=== PATIENT | female | born 1975 | race Caucasian/White ===

== ENCOUNTER 2016-11-11 07:59 | Emergency (ER) | payer SELFPAY ==
[~2016-11-11] VITALS: Ht 165.1 cm; Wt 88.5 kg
[~2016-11-11 07:59] MED LIST: AMOX500C2 PO; CPR500T PO; HYDR-3714 PO; PHEN200T27 PO; SULF1TAB7 PO; TRM50T PO
--- OUTSIDE RECORDS SUMMARY | 2016-11-11 08:05 | XMS REPORT ---
Author Author GUERLINE FOSTER Organization [employer] Address Unknown Phone Unavailable Care Team Providers Care Operator Name Role Phone GUERLINE FOSTER CP Unavailable Allergies, Adverse Reactions, Alerts Substance Reaction Event Type N.K.D.A. Info Not Available Non Drug Allergy Problems Problem Type Condition Code Onset Dates Condition Status Assessment Fatigue, unspecified type R53.83 Active Medications No Known Medications Procedures Procedure Coding System Code Date COMPLETE CBC W/AUTO DIFF WBC CPT-4 83214 Jul 26, 2015 Office Visit, Est Pt., Level 3 CPT-4 12158 Jul 26, 2015 ASSAY THYROID STIM HORMONE CPT-4 19914 Jul 26, 2015 VENIPUNCT, ROUTINE* CPT-4 21577 Jul 26, 2015 Vital Signs Date/Time: Jul 26, 2015 Temperature 98.2 F Weight 188.1 lbs Height 65 in BMI 31.30 Index Blood Pressure Diastolic 68 mmHg Blood Pressure Systolic 110 mmHg Cardiac Monitoring Heart Rate 72 bpm Results Name Result Date Reference Range Unit Abnormality Flag ROUTINE VENIPUNCTURE Summary Purpose eClinicalWorks Submission
--- NOTE | 2016-11-11 08:38 | ED Lower Extremity ---
General Chief Complaint: Lower Extremity Stated Complaint: LEFT FOOT PAIN Nursing Triage Note: PT CO OF L FOOT PAIN FOR APPROX 7 MONTHS. DENIES INJURY Nursing Sepsis Screen: No Definite Risk Source: patient Exam Limitations: no limitations History of Present Illness Time seen by provider: 08:15 Initial Comments Here with complaint of left foot pain for the last 6-7 months. She states it started when she was having to drive a vehicle with standard transmission but the pain is persisted despite the fact that she is no longer driving. Does not remember any specific injury. Complains of pain to the first MTP joint and then spreading across the forefoot and up to the ankle. States pain has increased to where she is now walking funny. She does take ibuprofen and that helped a little bit. Onset: other Severity: mild, moderate Pain/Injury Location: left foot Method of Injury: unknown Modifying Factors: Improves With Immobilization, Worse With Movement Allergies and Home Medications Allergies Coded Allergies: No Known Drug Allergies (Unverified Allergy, Mild, 04/29/09) Home Medications No Active Prescriptions or Reported Meds Constitutional: see HPINo chills, No fever Respiratory: no symptoms reported Cardiovascular: no symptoms reported Musculoskeletal: see HPI joint pain joint swelling muscle pain Skin: see HPI change in colorNo lesions Psychiatric/Neurological: No Symptoms Reported Past Pbzhyad-Inusne-Pgcbmm Hx Patient Social History Alcohol Use: Denies Use Recreational Drug Use: No Smoking Status: Current Everyday Smoker Type Used: Cigarettes Recent Foreign Travel: No Contact w/Someone Who Travel: No Recent Infectious Disease Expo: No Recent Hopitalizations: No Seasonal Allergies Seasonal Allergies: No Surgeries HX Surgeries: Yes (BRAIN ANEURYSM COILING) Surgeries: Vascular Surgery Respiratory Hx Respiratory Disorders: Yes (tobaccoism) Cardiovascular Hx Cardiac Disorders: No Neurological Hx Neurological Disorders: Yes (BRAIN ANEURYSM X2) Reproductive System Hx Reproductive Disorders: No Genitourinary Hx Genitourinary Disorders: Yes ("NO FILTER ON KIDNEYS") Gastrointestinal Hx Gastrointestinal Disorders: No Musculoskeletal Hx Musculoskeletal Disorders: No Endocrine Hx Endocrine Disorders: No HEENT HX ENT Disorders: No Cancer Hx Cancer: No Psychosocial Hx Psychiatric Problems: No Integumentary HX Skin/Integumentary Disorder: No Blood Transfusions Hx Blood Disorders: No Reviewed Nursing Assessment Reviewed/Agree w Nursing PMH: Yes Family Medical History Significant Family History: No Pertinent Family Hx Physical Exam Vital Signs Vital Sign - Last 12Hours 11/11/16 08:00 Temp 97.4 Pulse 87 Resp 18 B/P 138/68 Pulse Ox 97 O2 Delivery Room Air Capillary Refill : Less Than 3 Seconds General Appearance: WD/WN no apparent distress Cardiovascular: regular rate, rhythm no murmur Respiratory: lungs clear normal breath sounds Feet: left foot pain, left foot soft tissue tenderness, left foot swelling ( near the area of the first MTP), left foot other (athlete's foot noted throughout sole of left foot) Neurologic/Psychiatric: alert oriented x 3 Skin: warm/dry other (see above) Progress/Results/Core Measures Results/Orders My Orders Orders-MARTIN PINO MD Foot, Left, 3 Views (11/11/16 08:31) Vital Signs/I&O Vital Sign - Last 12Hours 11/11/16 08:00 Temp 97.4 Pulse 87 Resp 18 B/P 138/68 Pulse Ox 97 O2 Delivery Room Air Blood Pressure Mean: 91 Progress Note : Progress Note Seen and evaluated. X-ray left foot. I did discuss with the patient about outpatient treatment of tinea pedis. Monitor patient. 0905: X-ray shows mild degeneration but otherwise no acute fracture. Discharged home with return precautions. Patient verbalize understanding instructions and agreement with plan. Diagnostic Imaging Diagonstic Imaging: Xray Plain Films/CT/US/NM/MRI: other Comments NAME: LILIA MCGINNIS Mackenzie MED REC#: [id number] PT STATUS: REG ER : 1975 PHYSICIAN: MARTIN PINO MD ADMIT DATE: 11/11/16/ER Draft Date of Exam:11/11/16 FOOT, LEFT, 3 VIEWS INDICATION: Left foot pain, no known injury. DISCUSSION: Three views of left foot were obtained, no comparison. No acute fracture, dislocation, or other osseous abnormality identified. Mild degenerative changes within the first MTP joint. Alignment is anatomic. Soft tissues are unremarkable. IMPRESSION: 1. Mild degenerative changes within the first MTP joint. Dictated on workstation # [id number] Dict: 11/11/1655 Trans: 11/11/16 0903 [id number] Interpreted by: JOHN MASON MD Electronically signed by: Reviewed: Reviewed by Me Departure Impression Impression: Primary Impression: Left foot pain Disposition: 01 HOME, SELF-CARE Condition: Stable Departure-Patient Inst. Referrals: [facility] (PCP/Family) Primary Care Physician Patient Instructions: Athlete's Foot (DC), Sprain (DC) Add. Discharge Instructions: All discharge instructions reviewed with patient and/or family. Voiced understanding. Follow-up with your Dr. in a few days for recheck if not improved. You may take ibuprofen 600 mg every 8 hours as needed for pain for the next week or 2. Do not walk barefoot on any hard surface at any time for the next several weeks. Return for worse pain, increased swelling, red streaks up the leg, fevers, weakness or other concerns as needed. Scripts No Active Prescriptions or Reported Meds MARTIN PINO MD Nov 11, 2016 08:38
--- NOTE | 2016-11-11 09:04 | Diagnostic Imaging Report ---
INDICATION: Left foot pain, no known injury. DISCUSSION: Three views of left foot were obtained, no comparison. No acute fracture, dislocation, or other osseous abnormality identified. Mild degenerative changes within the first MTP joint. Alignment is anatomic. Soft tissues are unremarkable. IMPRESSION: 1. Mild degenerative changes within the first MTP joint. Dictated by: Dictated on workstation # [id number]
[2016-11-11 09:17] VITALS: BP 138/68
== END 2016-11-11 09:17 | disposition home or self-care (01) ==
LOC: EDUNIT# 07:59 → ER 08:01
DX: M25.572 Pain in left ankle and joints of left foot (principal); B35.3 Tinea pedis; F17.210 Nicotine dependence, cigarettes, uncomplicated
CPT/HCPCS: 73630; 99283

== ENCOUNTER → 2017-07-04 | Outpatient (CLI) | payer SELFPAY | LOC: RAD 12:46 | PROVIDERS: ATTEND Nurse Practitioner Family | DX: M79.605 Pain in left leg (principal); Z53.29 Procedure and treatment not carried out because of patient's decision for other reasons ==

== ENCOUNTER 2018-01-28 19:59 | Emergency (ER) | payer SELFPAY ==
[~2018-01-28] VITALS: Ht 165.1 cm; Wt 97.5 kg
--- OUTSIDE RECORDS SUMMARY | 2018-01-28 20:03 | XMS REPORT ---
Author Author GUERLINE FOSTER Organization e[employer] Address Unknown Phone Unavailable Care Team Providers Care Tile Applicator Name Role Phone GUERLINE FOSTER CP Unavailable Allergies, Adverse Reactions, Alerts Substance Reaction Event Type N.K.D.A. Info Not Available Non Drug Allergy Problems Problem Type Condition Code Onset Dates Condition Status Assessment Depression F32.9 Active Problem Depression F32.9 Active Medications Medication Code System Code Instructions Start Date End Date Status Dosage Sertraline HCl [facility] [address]-69 25 MG Orally Once a day Aug 01, 2015 1 tablet x 2 wk then 2 tab qd Procedures Procedure Coding System Code Date Office Visit, Est Pt., Level 3 CPT-4 71198 Aug 01, 2015 Vital Signs Date/Time: Aug 01, 2015 Cardiac Monitoring Heart Rate 70 bpm Weight 190 lbs Height 65 in BMI 31.61 Index Blood Pressure Diastolic 64 mmHg Blood Pressure Systolic 118 mmHg Results No Known Results Summary Purpose eClinicalWorks Submission
--- OUTSIDE RECORDS SUMMARY | 2018-01-28 20:03 | XMS REPORT ---
Author Author DIANE Rosen [facility] Address [address] [place] [address] Care Team Providers Care Agricultural Engineering Teacher Name Role Phone ольгаDIANE Montalvo Unavailable PROBLEMS Type Condition ICD9-CM Code [id number] Code Onset Dates Condition Status SNOMED Code Problem Left leg pain M79.605 Active 032422804 Problem Depression F32.9 Active 65978423 ALLERGIES No Known Allergies ENCOUNTERS Encounter Location Date Diagnosis [facility] [address] [id number] Jul, Cellulitis of left lower extremity L03.[address] [id number] Jul, [facility] [address] [id number] Jul, [facility] [address] [id number] Jul, Left leg pain M79.[address] [id number] Jun, Left leg pain M79.605 [facility] [address] [id number] Jun, Pain in central left lower extremity M79.605 [facility] [id number] [place] [phone] May, Cellulitis L03.[address] [id number] Nov, Hordeolum externum of left lower eyelid H00.015 and Rash R21 [address] [id number] Jul, Depression F32.9 [facility] [address] [facility] [id number] [place] [id number] Jul, Fatigue, unspecified type R53.[address] [facility] [address] [id number] [place] [id number] January, [facility] [address] [id number] [place], [place] [id number] January, Scabies 133.0 and Yeast infection of the vagina 112.1 IMMUNIZATIONS No Known Immunizations SOCIAL HISTORY Never Assessed REASON FOR VISIT left lower leg pain on the inside of her leg near her ankle. been like this for 2 months. went to [facility]...was dx with fatty tissue. [email or web address] PLAN OF CARE Activity Details Follow Up prn Reason: VITAL SIGNS Height 65 in 2017-05-14 Weight 201.4 lbs 2017-05-14 Temperature 97.7 degrees Fahrenheit 2017-05-14 Heart Rate 74 bpm 2017-05-14 Respiratory Rate 20 2017-05-14 BMI 33.51 kg/m2 2017-05-14 Blood pressure systolic 116 mmHg 2017-05-14 Blood pressure diastolic 78 mmHg 2017-05-14 MEDICATIONS Medication Instructions Dosage Frequency Start Date End Date Duration Status Bactrim DS 800-160 MG Orally BID 1 tablet 12h May, May, 10 day(s) Active RESULTS No Results PROCEDURES No Known procedures INSTRUCTIONS MEDICATIONS ADMINISTERED No Known Medications MEDICAL (GENERAL) HISTORY Type Description Date Surgical History aneurysm repair-left brain 2003 Surgical History aneurysm removed-right brain 2003
--- OUTSIDE RECORDS SUMMARY | 2018-01-28 20:03 | XMS REPORT ---
Author Author GUERLINE FOSTER [facility] Address [address] [place] [address] Care Team Providers Care Computer Network Engineer Name Role Phone GUERLINE FOSTER Unavailable PROBLEMS Type Condition ICD9-CM Code NNI50-WG Code Onset Dates Condition Status SNOMED Code Problem Left leg pain M79.605 Active 903758651 Problem Depression F32.9 Active 87923590 ALLERGIES No Information ENCOUNTERS Encounter Location Date Diagnosis [address] [id number] January, Acute non-recurrent maxillary sinusitis J01.00 ; Sore throat J02.9 and Left ear pain H92.02 [facility] [address] [id number] Jul, Cellulitis of left lower extremity L03.116 [address] [id number] [place] [id number] Jul, [place] [id number] [place] [id number] Jul, [facility] [id number] [place] [id number] Jul, Left leg pain M79.605 [place] [id number] [place] [id number] Jun, Left leg pain M79.605 [place] [id number] [place] [id number] Jun, Pain in central left lower extremity M79.605 [facility] [address] [phone] May, Cellulitis L03.90 [facility] [id number] [place] [id number] Nov, Hordeolum externum of left lower eyelid H00.015 and Rash R21 [facility] [address] [facility] [id number] [id number] Jul, Depression F32.[address] [id number] [id number] Jul, Fatigue, unspecified type R53.[address] [id number] [id number] January, [address] [id number] [id number] January, Scabies 133.0 and Yeast infection of the vagina 112.1 IMMUNIZATIONS No Known Immunizations SOCIAL HISTORY Never Assessed REASON FOR VISIT 07/07/17-phone call PLAN OF CARE VITAL SIGNS MEDICATIONS Unknown Medications RESULTS No Results PROCEDURES No Known procedures INSTRUCTIONS MEDICATIONS ADMINISTERED No Known Medications MEDICAL (GENERAL) HISTORY Type Description Date Surgical History aneurysm repair-left brain 2003 Surgical History aneurysm removed-right brain 2003
--- OUTSIDE RECORDS SUMMARY | 2018-01-28 20:03 | XMS REPORT ---
Author Author GUERLINE FOSTER [facility] Address [address] [place] [address] Care Team Providers Care Scrap Burner Name Role Phone GUERLINE FOSTER Unavailable PROBLEMS Type Condition ICD9-CM Code GIX45-WC Code Onset Dates Condition Status SNOMED Code Problem Left leg pain M79.605 Active 818140100 Problem Depression F32.9 Active 34129247 ALLERGIES No Information ENCOUNTERS Encounter Location Date Diagnosis [address] [id number] January, Acute non-recurrent maxillary sinusitis J01.00 ; Sore throat J02.9 and Left ear pain H92.02 [facility] [id number] [place] [id number] Jul, Cellulitis of left lower extremity L03.116 [place] [id number] [place] [id number] Jul, [place] [id number] [place] [id number] Jul, [facility] [id number] [place] [id number] Jul, Left leg pain M79.605 [place] [id number] [place] [id number] Jun, Left leg pain M79.605 [place] [id number] [place] [id number] Jun, Pain in central left lower extremity M79.605 [facility] [address]65[address] [phone] May, Cellulitis L03.90 [facility] [id number] [place] [id number] Nov, Hordeolum externum of left lower eyelid H00.015 and Rash R21 [facility] [address] [facility] [id number] [id number] Jul, Depression F32.[address] [id number][place] [id number] Jul, Fatigue, unspecified type R53.[address] [id number] [id number] January, [address] [id number][place] [id number] January, Scabies 133.0 and Yeast infection of the vagina 112.1 IMMUNIZATIONS No Known Immunizations SOCIAL HISTORY Never Assessed REASON FOR VISIT CT order PLAN OF CARE VITAL SIGNS MEDICATIONS Unknown Medications RESULTS Name Result Date Reference Range CT Scan : Extremity, Lower, Left w/o Contrast 2017-07-14 PROCEDURES No Known procedures INSTRUCTIONS MEDICATIONS ADMINISTERED No Known Medications MEDICAL (GENERAL) HISTORY Type Description Date Surgical History aneurysm repair-left brain 2003 Surgical History aneurysm removed-right brain 2003
--- OUTSIDE RECORDS SUMMARY | 2018-01-28 20:03 | XMS REPORT ---
Author Author GUERLINE FOSTER Organization eClinicalWorks Address Unknown Phone Unavailable Care Team Providers Care Bus Person Name Role Phone GUERLINE FOSTER CP Unavailable Allergies, Adverse Reactions, Alerts Substance Reaction Event Type N.K.D.A. Info Not Available Non Drug Allergy Problems Problem Type Condition Code Onset Dates Condition Status Assessment Fatigue, unspecified type R53.83 Active Medications No Known Medications Procedures Procedure Coding System Code Date COMPLETE CBC W/AUTO DIFF WBC CPT-4 55761 Jul 26, 2015 Office Visit, Est Pt., Level 3 CPT-4 13234 Jul 26, 2015 ASSAY THYROID STIM HORMONE CPT-4 02440 Jul 26, 2015 VENIPUNCT, ROUTINE* CPT-4 79853 Jul 26, 2015 Vital Signs Date/Time: Jul 26, 2015 Temperature 98.2 F Weight 188.1 lbs Height 65 in BMI 31.30 Index Blood Pressure Diastolic 68 mmHg Blood Pressure Systolic 110 mmHg Cardiac Monitoring Heart Rate 72 bpm Results Name Result Date Reference Range Unit Abnormality Flag ROUTINE VENIPUNCTURE Summary Purpose eClinicalWorks Submission
--- NOTE | 2018-01-28 20:14 | ED Integumentary General ---
General Stated Complaint: SPIDER BITE Source: patient Exam Limitations: no limitations History of Present Illness Date Seen by Provider: January 28, 2018 Time Seen by Provider: 20:09 Initial Comments to ER with a quarter sized esion to the left anterior lower ankle. This was first noticed about 2 days ago after mowing the lawn. Her tried atif this last night at home. Timing/Duration: just prior to arrival Severity: moderate Allergies and Home Medications Allergies Coded Allergies: No Known Drug Allergies (Unverified , 04/29/09) Home Medications No Active Prescriptions or Reported Meds Patient Home Medication List Home Medication List Reviewed: Yes Constitutional: see HPI EENTM: see HPI Respiratory: no symptoms reported Cardiovascular: no symptoms reported Genitourinary: no symptoms reported Musculoskeletal: no symptoms reported Skin: see HPI Psychiatric/Neurological: No Symptoms Reported Past Aiybhuy-Uoxrxx-Xbhqdx Hx Patient Social History Type Used: Cigarettes Recent Foreign Travel: No Contact w/Someone Who Travel: No Recent Hopitalizations: No Seasonal Allergies Seasonal Allergies: No Past Medical History Vascular Surgery Reproductive Disorders: No Family Medical History No Pertinent Family Hx Physical Exam Vital Signs Capillary Refill : General Appearance: WD/WN, no apparent distress HEENT: PERRL/EOMI, normal ENT inspection Neck: non-tender, full range of motion Respiratory: no respiratory distress, no accessory muscle use Neurologic/Psychiatric: alert, normal mood/affect Skin: normal color, warm/dry Skin Problem Location: other (quarter sized area of erythematous papules in a cluster to the left anterior ankle most consistent with a rhus dermatitisith a small area of honey-colored exudate from the center of this wherehusband attempted to drain this last night. No lymphangitis. No cellulitis. Borders are well demarcated.) Skin Problem Character: erythema Departure Impression Primary Impression: Skin lesion Disposition: HOME, SELF-CARE Condition: Stable Departure-Patient Inst. Decision time for Depature: 20:13 Referrals: [facility] (PCP/Family) Primary Care Physician Patient Instructions: NO INSTRUCTIONS GIVEN Add. Discharge Instructions: 1. Wash and dry this with soap and water twice daily. Apply the antibiotic and steroid cream twice daily. Tylenol and Motrin for pain control. Cool compresses to this area. Scripts No Active Prescriptions or Reported Meds AMY DIAZ APRN January 28, 2018 20:14
[2018-01-28] MEDS ORDERED: RX-MUPIROCIN (BACTROBAN) 2% OINT 22 GM TUBE TOP STA (20:15)
[2018-01-28 20:29] VITALS: BP 139/84
[2018-01-28] MEDS ORDERED: TRIAMCINOLONE 0.1% CR (KENALOG) 15 GM TUBE TOP SCH (21:00)
== END 2018-01-28 20:29 | disposition home or self-care (01) ==
LOC: EDUNIT# 19:59 → ER 20:00
DX: L98.9 Disorder of the skin and subcutaneous tissue, unspecified (principal)
CPT/HCPCS: 99283

== ENCOUNTER 2018-03-09 14:09 | Emergency (ER) | payer SELFPAY ==
[~2018-03-09] VITALS: Ht 165.1 cm; Wt 94.3 kg
[2018-03-09 15:11] LABS: BILIRUBIN,URINE NEGATIVE (NEGATIVE); CLARITY,URINE CLEAR; COLOR,URINE YELLOW; GLUCOSE, URINE (UA) NEGATIVE (NEGATIVE); KETONES,URINE NEGATIVE (NEGATIVE); LEUKOCYTE ESTERASE ,URINE NEGATIVE (NEGATIVE); NITRITE,URINE NEGATIVE (NEGATIVE); PH,URINE 6 (5-9); PROTEIN,URINE 1+ (NEGATIVE); UROBILINOGEN,URINE NORMAL (NORMAL)
[2018-03-09 15:23] LABS: AMPHETAMINE SCREEN, URINE NEGATIVE (NEGATIVE); BARBITURATE SCREEN URINE NEGATIVE (NEGATIVE); BENZODIAZEPINES SCREEN URINE NEGATIVE (NEGATIVE); CANNABINOID SCREEN, URINE NEGATIVE (NEGATIVE); COCAINE SCREEN URINE NEGATIVE (NEGATIVE); METHADONE STAT NEGATIVE (NEGATIVE); METHAMPHETAMINE SCREEN URINE S NEGATIVE (NEGATIVE); OPIATE SCREEN URINE NEGATIVE (NEGATIVE); OXYCODONE STAT NEGATIVE (NEGATIVE); PROPOXYPHENE STAT NEGATIVE (NEGATIVE); TRICYCLIC ANTIDEPRESSANTS SCRE NEGATIVE (NEGATIVE)
[2018-03-09 15:24] LABS: BACTERIA,URINE NEGATIVE /HPF; RBC,URINE 0-2 /HPF
[2018-03-09 15:56] LABS: ALANINE AMINOTRANSFERASE 20 U/L (0-55); ALBUMIN 4.2 GM/DL (3.2-4.5); ALKALINE PHOSPHATASE 78 U/L (40-136); BILIRUBIN,TOTAL 0.7 MG/DL (0.1-1.0); BUN/CREATININE RATIO 9; CALCIUM 9.2 MG/DL (8.5-10.1); CARBON DIOXIDE 22 MMOL/L (21-32); CHLORIDE 107 MMOL/L (98-107); CREATININE SERUM 0.76 MG/DL (0.60-1.30); GFR ESTIMATED > 60; GLUCOSE 80 MG/DL (70-105); POTASSIUM 3.2 MMOL/L (3.6-5.0); SODIUM 139 MMOL/L (135-145); TOTAL PROTEIN 6.7 GM/DL (6.4-8.2)
--- NOTE | 2018-03-09 15:59 | ED Back Pain ---
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 SHE SAID IT WAS WORSE TODAY SO SHE DECIDED TO FINALLY BE SEEN. HER REGULAR DOCTOR WAS NOT AVAILABLE TODAY. Nursing Sepsis Screen: No Definite Risk Source of Information: Patient Exam Limitations: No Limitations History of Present Illness Date Seen by Provider: Mar 09, 2018 Time Seen by Provider: 15:54 Initial Comments The patient is a 42-year-old white female who presents with complaints of back pain. She states this is been present for years. 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 She states that this has been getting worse for at least more difficult to put up with. 800 mg of ibuprofen has not proved to be any relief. Heat helps somewhat. She describes pain coming from her back to her right hip and also numbness down the leg. Standing Is tolerable. Sitting is the worst position. She also has pain when lying down. Today she finally decided that she must do something about this. Her provider was not available so she decided to come here. Pain/Injury Location: Back Radiation: Other Method of Injury: Unknown Allergies and Home Medications Allergies Coded Allergies: No Known Drug Allergies (Unverified , 04/29/09) Home Medications No Active Prescriptions or Reported Meds Patient Home Medication List Home Medication List Reviewed: Yes Constitutional: see HPI EENTM: no symptoms reported Respiratory: no symptoms reported Cardiovascular: no symptoms reported Gastrointestinal: no symptoms reported Genitourinary: no symptoms reported Musculoskeletal: back pain Skin: no symptoms reported Psychiatric/Neurological: No Symptoms Reported Past [id number]-[id number] Hx Patient Social History Type Used: Cigarettes 2nd Hand Smoke Exposure: Yes Recent Foreign Travel: No Contact w/Someone Who Travel: No Recent Infectious Disease Expo: No Recent Hopitalizations: No Seasonal Allergies Seasonal Allergies: No Past Medical History Surgeries: Yes (BRAIN ANEURYSM COILING) Vascular Surgery Respiratory: Yes (tobaccoism) Cardiac: No Neurological: Yes (BRAIN ANEURYSM X2) Reproductive Disorders: No Gastrointestinal: No Musculoskeletal: No Endocrine: No Cancer: No Psychosocial: No Integumentary: No Blood Disorders: No Family Medical History No Pertinent Family Hx Physical Exam Vital Signs Vital Signs - First Documented 03/09/18 14:27 Temp 97.9 Pulse 74 Resp 18 B/P (MAP) 179/116 (137) Pulse Ox 98 Capillary Refill : Less Than 3 Seconds General Appearance: Mild Distress HEENT: Normal ENT Inspection Neck: Normal Inspection Cardiovascular: Regular Rate, Rhythm, No Edema, No Gallop, No JVD, No Murmur, Normal Peripheral Pulses Respiratory: Chest Non Tender, Lungs Clear, Normal Breath Sounds, No Accessory Muscle Use, No Respiratory Distress, Accessory Muscle Use Gastrointestinal: Normal Bowel Sounds, No Organomegaly, No Pulsatile Mass, Non Tender Neurologic/Psychiatric: Alert, Oriented x3, No Motor/Sensory Deficits, Normal Mood/Affect, 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 There is pain to ante flexion. There is no Reflex movement at either knee Progress/Results/Core Measures Results/Orders Lab Results Laboratory Tests Test 03/09/18 15:00 03/09/18 15:15 03/09/18 16:40 Range/Units Urine Color YELLOW Urine Clarity CLEAR Urine pH 6 5-9 Urine Specific [place] 1.010 L 1.016-1.022 Urine Protein 1+ H NEGATIVE Urine Glucose (UA) NEGATIVE NEGATIVE Urine Ketones NEGATIVE NEGATIVE Urine Nitrite NEGATIVE NEGATIVE Urine Bilirubin NEGATIVE NEGATIVE Urine Urobilinogen NORMAL NORMAL MG/DL Urine Leukocyte Esterase NEGATIVE NEGATIVE Urine RBC (Auto) 3+ H NEGATIVE Urine RBC 0-2 /HPF Urine WBC NONE /HPF Urine Squamous Epithelial Cells 2-5 /HPF Urine Crystals NONE /LPF Urine Bacteria NEGATIVE /HPF Urine Casts NONE /LPF Urine Mucus NEGATIVE /LPF Urine Culture Indicated NO Urine Opiates Screen NEGATIVE NEGATIVE Urine Oxycodone Screen NEGATIVE NEGATIVE Urine Methadone Screen NEGATIVE NEGATIVE Urine Propoxyphene Screen NEGATIVE NEGATIVE Urine Barbiturates Screen NEGATIVE NEGATIVE Ur Tricyclic Antidepressants Screen NEGATIVE NEGATIVE Urine Phencyclidine Screen NEGATIVE NEGATIVE Urine Amphetamines Screen NEGATIVE NEGATIVE Urine Methamphetamines Screen NEGATIVE NEGATIVE Urine Benzodiazepines Screen NEGATIVE NEGATIVE Urine Cocaine Screen NEGATIVE NEGATIVE Urine Cannabinoids Screen NEGATIVE NEGATIVE Sodium Level 139 135-145 MMOL/L Potassium Level 3.2 L 3.6-5.0 MMOL/L Chloride Level 107 98-107 MMOL/L Carbon Dioxide Level 22 21-32 MMOL/L Anion Gap 10 5-14 MMOL/L Blood Urea Nitrogen 7 7-18 MG/DL Creatinine 0.76 0.60-1.30 MG/DL Estimat Glomerular Filtration Rate > 60 BUN/Creatinine Ratio 9 Glucose Level 80 70-105 MG/DL Calcium Level 9.2 8.5-10.1 MG/DL Total Bilirubin 0.7 0.1-1.0 MG/DL Aspartate Amino Transf (AST/SGOT) 23 5-34 U/L Alanine Aminotransferase (ALT/SGPT) 20 0-55 U/L Alkaline Phosphatase 78 40-136 U/L Total Protein 6.7 6.4-8.2 GM/DL Albumin 4.2 3.2-4.5 GM/DL White Blood Count 8.7 4.3-11.0 10^3/uL Red Blood Count 4.53 4.35-5.85 10^6/uL Hemoglobin 13.7 11.5-16.0 G/DL Hematocrit 39 35-52 % Mean Corpuscular Volume 87 80-99 FL Mean Corpuscular Hemoglobin 30 25-34 PG Mean Corpuscular Hemoglobin Concent 35 32-36 G/DL Red Cell Distribution Width 13.0 10.0-14.5 % Platelet Count 268 130-400 10^3/uL Mean Platelet Volume 11.3 H 7.4-10.4 FL Neutrophils (%) (Auto) 53 42-75 % Lymphocytes (%) (Auto) 35 12-44 % Monocytes (%) (Auto) 8 0-12 % Eosinophils (%) (Auto) 4 0-10 % Basophils (%) (Auto) 1 0-10 % Neutrophils # (Auto) 4.6 1.8-7.8 X 10^3 Lymphocytes # (Auto) 3.1 1.0-4.0 X 10^3 Monocytes # (Auto) 0.7 0.0-1.0 X 10^3 Eosinophils # (Auto) 0.3 0.0-0.3 10^3/uL Basophils # (Auto) 0.1 0.0-0.1 10^3/uL My Orders Orders - SUPA COTTER MD Cbc With Automated Diff (03/09/18 14:31) Comprehensive Metabolic Panel (03/09/18 14:31) Drug Screen Stat (Urine) (03/09/18 14:31) Ua Culture If Indicated (03/09/18 14:31) Ketorolac Injection (Toradol Injection) (03/09/18 16:15) Ct Lumbar Spine Wo (03/09/18 16:01) Medications Given in ED Current Medications Medications Dose Ordered Sig/Shaheen Route Start Time Stop Time Status Last Admin Dose Admin Ketorolac Tromethamine 60 mg ONCE ONCE IM 03/09/18 16:15 03/09/18 16:16 DC 03/09/18 16:09 60 MG Vital Signs/I&O 03/09/18 14:27 Temp 97.9 Pulse 74 Resp 18 B/P (MAP) 179/116 (137) Pulse Ox 98 Blood Pressure Mean: 137 Departure Communication (Admissions) CT of the lumbar spine was reported by Dr. Galarza as showing only mild degenerative changes. If more definitive views were required he recommended MRI Impression Primary Impression: low back pain/lumbar radiculopathy Disposition: HOME, SELF-CARE Condition: Stable/Unchanged Departure-Patient Inst. Decision time for Depature: 16:56 Referrals: [facility] (PCP) Primary Care Physician Patient Instructions: Lumbar Muscle Strain (DC), Upper Back Pain (DC) Add. Discharge Instructions: All discharge instructions reviewed with patient and/or family. Voiced understanding. Take prednisone as directed. Use tramadol sparingly for pain relief See your provider in 7-10 days for further evaluation Scripts Prednisone (Prednisone) 20 Mg Tab 20 MG PO PD, #10 TAB 2 tablets each a.m. 3 days 1 tablet each a.m. 4 days Prov: SUPA COTTER MD 03/09/18 Tramadol HCl (Tramadol HCl) 50 Mg Tablet 1 TAB PO 3 times a day, #20 TAB Prov: SUPA COTTER MD 03/09/18 SUPA COTTER MD Mar 09, 2018 15:59
[2018-03-09] MEDS ORDERED: KETOROLAC 60 MG/2 ML VIAL IM ONE (16:15)
--- NOTE | 2018-03-09 16:48 | Diagnostic Imaging Report ---
PROCEDURE: CT lumbar spine without contrast. TECHNIQUE: Multiple contiguous axial images were obtained through the lumbar spine without the use of intravenous contrast. Sagittal and coronal reformations were then performed. INDICATION: Low back and right leg pain. COMPARISON: There are no prior studies available for comparison. FINDINGS: The reconstructed sagittal images show the vertebral body heights and alignment to be within normal limits. The intervertebral spaces are fairly well maintained. The thecal sac appears to be relatively generous. There is perhaps mild narrowing of the thecal sac at L3-4 and L4-5 due to a combination of degenerative disc, ligamentous, and bony disease. However, there is no significant stenosis at this level nor does there appear to be any encroachment of the nerve roots. The remainder of the lumbar spine is unremarkable for spinal stenosis or nerve root encroachment. There is no fracture or acute bony abnormality appreciated. There does appear to be a small 1.2 cm hemangioma along the inferior endplate of T11 on the left. There is no sign of a paraspinal mass. IMPRESSION: 1. 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 There is no sign of any significant neural foraminal narrowing either. If further imaging is desired, then MRI would be recommended. 2. There is no acute bony abnormality noted. 3. These results were discussed with Dr. Izquierdo in the ER. Dictated by: Dictated on workstation # [id number]
[2018-03-09 16:50] LABS: BASOPHILS # (AUTO) 0.1 10^3/uL (0.0-0.1); BASOPHILS % (AUTO) 1 % (0-10); EOSINOPHILS # (AUTO) 0.3 10^3/uL (0.0-0.3); EOSINOPHILS % (AUTO) 4 % (0-10); HEMATOCRIT 39 % (35-52); HEMOGLOBIN 13.7 G/DL (11.5-16.0); LYMPHOCYTES # (AUTO) 3.1 X 10^3 (1.0-4.0); LYMPHOCYTES % (AUTO) 35 % (12-44); MEAN CORPUSCULAR HEMOGLOBIN 30 PG (25-34); MEAN CORPUSCULAR HGB CONC 35 G/DL (32-36); MEAN CORPUSCULAR VOLUME 87 FL (80-99); MEAN PLATELET VOLUME 11.3 FL (7.4-10.4); MONOCYTES # (AUTO) 0.7 X 10^3 (0.0-1.0); MONOCYTES % (AUTO) 8 % (0-12); NEUTROPHILS # (AUTO) 4.6 X 10^3 (1.8-7.8); NEUTROPHILS % (AUTO) 53 % (42-75); PLATELET COUNT 268 10^3/uL (130-400); RED BLOOD COUNT 4.53 10^6/uL (4.35-5.85); WHITE BLOOD COUNT 8.7 10^3/uL (4.3-11.0)
[2018-03-09] MEDS ORDERED: TRAM50TA2 PO (16:59)
[2018-03-09] MEDS ORDERED: PRD20T PO (17:11)
[2018-03-09 17:19] VITALS: BP 179/116
== END 2018-03-09 17:19 | disposition home or self-care (01) ==
LOC: EDUNIT# 14:09 → ER 14:12
DX: M54.16 Radiculopathy, lumbar region (principal); Z77.22 Contact with and (suspected) exposure to environmental tobacco smoke (acute) (chronic); Z86.73 Personal history of transient ischemic attack (TIA), and cerebral infarction without residual deficits
CPT/HCPCS: 36415; 72131; 80053; 80306; 81000; 85025; 96372

== ENCOUNTER 2020-09-20 14:42 | Emergency (ER) | payer SELFPAY ==
[~2020-09-20] VITALS: Ht 165.1 cm; Wt 99.8 kg
[~2020-09-20 14:42] MED LIST changes: +PRD20T PO
[2020-09-20] MEDS ORDERED: fentaNYL INJECTION 100 MCG/2 ML AMP IVP ONE (15:15)
[2020-09-20] MEDS ORDERED: NS IV 1000 ML 1,000 ML IV SCH (15:15)
[2020-09-20] MEDS ORDERED: ASPIRIN 81 MG CHEW (CHILDREN'S ASA) PO ONE (15:15)
--- NOTE | 2020-09-20 15:21 | ED Neurological Problem ---
General Chief Complaint: Chest Pain Stated Complaint: MARQUEZ,CP, HTN Nursing Triage Note: PT AMBULATE TO ROOM 05 WITH C/O CHEST PAIN X4 DAYS. PT STATES SHE WAS SEEN AT [facility] TODAY AND WAS SENT TO THIS ED. PT DENIES ANY HX OF CARDIAC ISSUES. Nursing Sepsis Screen: No Definite Risk Source: patient Exam Limitations: no limitations History of Present Illness Date Seen by Provider: Sep 20, 2020 Time Seen by Provider: 15:04 Initial Comments The patient presents to the ER by private conveyance with chief complaint left side stabbing chest pain lasting for about a second starting about 4 days ago. Not made worse by deep inspiration. She is not had any new cough. No shortness of air fever chills nausea vomiting or sick contacts. No history of heart disease. She does smoke cigarettes and has high blood pressure. She went to urgent care because she was having pain behind her eyes and some paresthesias in her right arm. She says this is a similar presentation to when she had to have her aneurysm surgery in [place]. She says she had 2 aneurysms behind each eye and does not remember what they did for it. She does not take any medicines now. She is not on blood thinners. She denies a history of lung disease. Allergies and Home Medications Allergies Coded Allergies: No Known Drug Allergies (Unverified , 04/29/09) Home Medications Prednisone 20 Mg Tab, 20 MG PO PD 2 tablets each a.m. 3 days 1 tablet each a.m. 4 days Prescribed by: SUPA COTTER on 03/09/18 1711 Tramadol HCl 50 Mg Tablet, 1 TAB PO 3 times a day Prescribed by: SUPA COTTER on 03/09/18 1659 Patient Home Medication List Home Medication List Reviewed: Yes Review of Systems Review of Systems Constitutional: No chills, No diaphoresis Eyes: Denies Blindness, Denies Blurred Vision, Denies Drainage Ears, Nose, Mouth, Throat: denies ear pain, denies ear discharge Respiratory: No cough, No short of breath Cardiovascular: No chest pain, No palpitations Gastrointestinal: No abdominal pain, No nausea, No vomiting Genitourinary: No decreased output, No discharge, No dysuria Musculoskeletal: No back pain, No joint pain Psychiatric/Neurological: See HPI, Tingling (Right arm) All Other Systems Reviewed Negative Unless Noted: Yes Past Ztndgxc-Fytskz-Huifep Hx Patient Social History Alcohol Use: Denies Use Smoking Status: Current Everyday Smoker Type Used: Cigarettes 2nd Hand Smoke Exposure: Yes Recent Infectious Disease Expo: No Recent Hopitalizations: No Seasonal Allergies Seasonal Allergies: No Past Medical History Surgeries: Yes (BRAIN ANEURYSM COILING) Vascular Surgery Respiratory: Yes (tobaccoism) Cardiac: No Neurological: Yes (BRAIN ANEURYSM X2) Reproductive Disorders: No Gastrointestinal: No Musculoskeletal: No Endocrine: No Cancer: No Psychosocial: No Integumentary: No Blood Disorders: No Family Medical History No Pertinent Family Hx Physical Exam Vital Signs Vital Signs - First Documented 09/20/20 15:03 Temp 35.8 Pulse 88 Resp 18 B/P (MAP) 147/94 (111) O2 Delivery Room Air Capillary Refill : Less Than 3 Seconds Height, Weight, BMI Height: 5'5.00" Weight: 208lbs. 0oz. [id number]; 36.00 BMI Method:Stated General Appearance: WD/WN, mild distress HEENT: PERRL/EOMI, pharynx normal, TM abnormal (R) (Injected with opaque mucus behind the TM nontender to palpation and manipulation), other (Bilateral nasal mucosa is congested, with some mild to moderate purulent discharge. Tenderness to palpation over bilateral maxillary and frontal sinuses.) Neck: full range of motion, normal inspection Respiratory: lungs clear, normal breath sounds, no respiratory distress, no accessory muscle use Cardiovascular: normal peripheral pulses, regular rate, rhythm Peripheral Pulses: 2+ Dorsalis Pedis (R), 2+ Left Dors-Pedis (L), 2+ Radial Pulses (R), 2+ Radial Pulses (L) Extremities: normal range of motion, non-tender, normal inspection, no pedal edema Neurologic/Psychiatric: alert, oriented x 3, other (Anxious affect) Crainal Nerves: normal hearing, normal speech, PERRL Motor/Sensory: no motor deficit, other (Paresthesias but sensation is intact in the right upper extremity) Skin: normal color, warm/dry Progress/Results/Core Measures Results/Orders Lab Results Laboratory Tests Test 09/20/20 15:20 09/20/20 15:35 Range/Units White Blood Count 10.5 4.3-11.0 10^3/uL Red Blood Count 5.01 3.80-5.11 10^6/uL Hemoglobin 14.8 11.5-16.0 g/dL Hematocrit 45 35-52 % Mean Corpuscular Volume 89 80-99 fL Mean Corpuscular Hemoglobin 30 25-34 pg Mean Corpuscular Hemoglobin Concent 33 32-36 g/dL Red Cell Distribution Width 12.1 10.0-14.5 % Platelet Count 319 130-400 10^3/uL Mean Platelet Volume 11.1 9.0-12.2 fL Immature Granulocyte % (Auto) 0 % Neutrophils (%) (Auto) 62 42-75 % Lymphocytes (%) (Auto) 29 12-44 % Monocytes (%) (Auto) 5 0-12 % Eosinophils (%) (Auto) 3 0-10 % Basophils (%) (Auto) 1 0-10 % Neutrophils # (Auto) 6.5 1.8-7.8 10^3/uL Lymphocytes # (Auto) 3.1 1.0-4.0 10^3/uL Monocytes # (Auto) 0.5 0.0-1.0 10^3/uL Eosinophils # (Auto) 0.3 0.0-0.3 10^3/uL Basophils # (Auto) 0.1 0.0-0.1 10^3/uL Immature Granulocyte # (Auto) 0.0 0.0-0.1 10^3/uL Prothrombin Time 12.4 12.2-14.7 SEC INR Comment 0.9 0.8-1.4 Activated Partial Thromboplast Time 24 24-35 SEC Sodium Level 137 135-145 MMOL/L Potassium Level 3.5 L 3.6-5.0 MMOL/L Chloride Level 102 98-107 MMOL/L Carbon Dioxide Level 25 21-32 MMOL/L Anion Gap 10 5-14 MMOL/L Blood Urea Nitrogen 12 7-18 MG/DL Creatinine 0.84 0.60-1.30 MG/DL Estimat Glomerular Filtration Rate > 60 BUN/Creatinine Ratio 14 Glucose Level 165 H 70-105 MG/DL Calcium Level 9.3 8.5-10.1 MG/DL Corrected Calcium 9.1 8.5-10.1 MG/DL Magnesium Level 1.9 1.6-2.4 MG/DL Total Bilirubin 0.6 0.1-1.0 MG/DL Aspartate Amino Transf (AST/SGOT) 19 5-34 U/L Alanine Aminotransferase (ALT/SGPT) 23 0-55 U/L Alkaline Phosphatase 97 40-136 U/L Myoglobin 29.1 10.0-92.0 NG/ML Troponin I < 0.028 <0.028 NG/ML Total Protein 7.6 6.4-8.2 GM/DL Albumin 4.3 3.2-4.5 GM/DL Urine Color YELLOW Urine Clarity CLEAR Urine pH 5.5 5-9 Urine Specific [place] >=1.030 1.016-1.022 Urine Protein 2+ H NEGATIVE Urine Glucose (UA) NEGATIVE NEGATIVE Urine Ketones NEGATIVE NEGATIVE Urine Nitrite NEGATIVE NEGATIVE Urine Bilirubin NEGATIVE NEGATIVE Urine Urobilinogen 0.2 < = 1.0 MG/DL Urine Leukocyte Esterase NEGATIVE NEGATIVE Urine RBC (Auto) 2+ H NEGATIVE Urine RBC 2-5 H /HPF Urine WBC NONE /HPF Urine Squamous Epithelial Cells 25-50 H /HPF Urine Crystals NONE /LPF Urine Bacteria NEGATIVE /HPF Urine Casts NONE /LPF Urine Mucus NEGATIVE /LPF Urine Culture Indicated NO My Orders Orders - CALOS,PEÑA J Continuous Ekg Monitoring (09/20/20 14:43) Ekg Tracing (09/20/20 14:43) Ua Culture If Indicated (09/20/20 14:43) Urine Bedside (09/20/20 14:43) Cbc With Automated Diff (09/20/20 15:11) Magnesium (09/20/20 15:11) Chest 1 View, Ap/Pa Only (09/20/20 15:11) Comprehensive Metabolic Panel (09/20/20 15:11) Myoglobin Serum (09/20/20 15:11) Protime With Inr (09/20/20 15:11) Partial Thromboplastin Time (09/20/20 15:11) O2 (09/20/20 15:11) Lipid Panel (09/21/20 06:00) Ed Iv/Invasive Line Start (09/20/20 15:11) Troponin I (09/20/20 15:11) Aspirin Chewable Tablet (Baby Aspirin Ch (09/20/20 15:15) Ct Angio Head/Neck (09/20/20 15:11) Ed Iv/Invasive Line Start (09/20/20 15:11) Ns Iv 1000 Ml (Sodium Chloride 0.9%) (09/20/20 15:15) Fentanyl Injection (Sublimaze Injection (09/20/20 15:15) Iohexol Injection (Omnipaque 350 Mg/Ml 1 (09/20/20 15:30) Received Contrast (Hold Metformin- Contr (09/20/20 15:30) Sodium Chloride Flush (Catheter Flush Sy (09/20/20 15:30) Ns (Ivpb) (Sodium Chloride 0.9% Ivpb Bag (09/20/20 15:30) Lorazepam Injection (Ativan Injection) (09/20/20 16:15) Medications Given in ED Current Medications Medications Dose Ordered Sig/Shaheen Route Start Time Stop Time Status Last Admin Dose Admin Aspirin 324 mg ONCE ONCE PO 09/20/20 15:15 09/20/20 15:16 DC 09/20/20 15:32 324 MG Fentanyl Citrate 25 mcg ONCE ONCE IVP 09/20/20 15:15 09/20/20 15:16 DC 09/20/20 15:33 25 MCG Iohexol 75 ml ONCE ONCE IV 09/20/20 15:30 09/20/20 15:31 DC 09/20/20 17:07 75 ML Lorazepam 1 mg ONCE ONCE IVP 09/20/20 16:15 09/20/20 16:16 DC 09/20/20 16:17 1 MG Sodium Chloride 100 ml ONCE ONCE IV 09/20/20 15:30 09/20/20 15:31 DC 09/20/20 17:07 80 ML Vital Signs/I&O 09/20/20 09/20/20 09/20/20 15:03 15:08 15:33 Temp 35.8 35.8 Pulse 88 Resp 18 B/P (MAP) 147/94 (111) O2 Delivery Room Air Room Air Blood Pressure Mean: 111 Progress Progress Note #1: Time: 15:22 Progress Note 4 days of symptoms seems less likely she has an acute intracranial hemorrhage however we will shoot a CT angiogram of her head and neck to evaluate her vasculature. More likely she has a sinus infection based on her exam of nasal congestion, purulent mucosa, tenderness to palpation. Her chest pain is also reproducible to direct palpation and lasts only a few seconds and is less likely concerning for coronary disease. Musculoskeletal most likely. Progress Note #2: Time: 17:40 Progress Note The patient is feeling better. I suspect she has some sinusitis based on clinical exam as well as a right otitis media probably causing labyrinthitis and the vertigo. Nothing on the CT angiogram would explain why she is having the paresthesia however she is not having it anymore. The brief, acute chest wall pain is likely musculoskeletal in origin and in 4 days has not produced any serum troponin. Plan to have her follow-up with her primary care provider for further evaluation and management of her symptoms. We will put her on Augmentin which should treat her ear as well as sinusitis. Meclizine for vertigo. Return precautions were discussed. Initial ECG Impression Date: Sep 20, 2020 Initial ECG Impression Time: 14:57 Initial ECG Rate: 87 Initial ECG Rhythm: Normal Sinus Initial ECG Intervals: Normal Initial ECG Impression: Normal Initial ECG Comparisson: No Previous ECG Available Comment Normal sinus rhythm without clinically relevant ST elevation or depression Diagnostic Imaging Diagonstic Imaging: Xray Plain Films/CT/US/NM/MRI: chest Comments NAME: MCGINNISLILIA Mann MED REC#: [id number] PT STATUS: REG ER : 1975 PHYSICIAN: PEÑA LIVE MD ADMIT DATE: 09/20/20/ER Draft Date of Exam:09/20/20 CHEST 1 VIEW, AP/PA ONLY PATIENT HISTORY: Chest pain. TECHNIQUE: Single frontal view of the chest. COMPARISON: 01/21/2015. FINDINGS: The lung volumes are normal. No focal consolidation is seen. No large pleural effusion or pneumothorax is seen. The cardiomediastinal silhouette is normal in size and contour. No acute osseous abnormality is seen. IMPRESSION: No acute pulmonary abnormality seen. Dictated on workstation # [id number] Dict: 09/20/20 1612 Trans: 09/20/20 1614 AS6 [id number] Interpreted by: MARIO REYES MD Electronically signed by: Reviewed: Reviewed by Me Diagonstic Imaging: CT (Angiogram) Plain Films/CT/US/NM/MRI: head (And neck) Comments [facility] [place] [place] NAME: LILIA MCGINNIS MED REC#: [id number] PT STATUS: REG ER : 1975 PHYSICIAN: PEÑA LIVE MD ADMIT DATE: 09/20/20/ER Draft Date of Exam:09/20/20 CT ANGIO HEAD/NECK PROCEDURE: CT angiography of the head and CT angiography of the neck with and without contrast. TECHNIQUE: Contiguous noncontrast images were obtained from the skull base through the vertex. After intravenous contrast administration, helical CT angiography of the neck was performed. Source data was reformatted into 3D MIP projections. Delayed post contrast acquisition was also obtained. Auto Exposure Controls were utilized during the CT exam to meet ALARA standards for radiation dose reduction. INDICATION: Severe frontal headache. History of intracranial aneurysm status post clipping. COMPARISON: None available. FINDINGS: NONCONTRAST HEAD: No intracranial hyperdense hemorrhage or space-occupying mass. No hydrocephalus or midline shift. There are aneurysm clips at the bilateral carotid terminus. Basilar cisterns are widely patent. Bilateral frontotemporal craniotomies. No acute calvarial lesion. Paranasal sinuses and mastoid air cells are clear. CTA HEAD: Bilateral distal internal carotid arteries are widely patent and there is no carotid terminus aneurysm. The M1 and M2 divisions of the bilateral middle cerebral arteries appear patent allowing for the artifact associated with the aneurysm clips. There is a 4 x 3 mm aneurysm arising from the anterior communicating artery and this has a narrow neck. Anterior cerebral arteries are patent. Basilar artery is widely patent. Posterior cerebral arteries are patent. No aneurysm at the basilar tip or posterior communicating arteries. No pathologic enhancement on delayed-phase imaging. CTA NECK: Aortic arch is normal in appearance. A two-vessel branching pattern is present and the great vessels are widely patent. The bilateral common carotid arteries are normal. There is no stenosis of the internal carotid arteries per NASCET criteria. Cervical divisions of the internal carotid arteries are widely patent. Vertebral arteries are codominant and their origins are normal. No cervical lymphadenopathy. Lung apices are clear. IMPRESSION: 1. 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 2. No intracranial large vessel occlusion. 3. No intracranial hemorrhage. 4. No arterial stenosis or occlusion within the major neck arteries. Dictated on workstation # [id number] Dict: 09/20/20 1657 Trans: 09/20/20 1708 AS6 [id number] Interpreted by: PAWAN DIAL MD Electronically signed by: Reviewed: Reviewed by Me Departure Impression Primary Impression: Sinusitis Qualified Codes: J01.10 - Acute frontal sinusitis, unspecified Additional Impressions: Labyrinthitis of right ear Acute otitis media, right Vertigo Paresthesia of right arm Chest wall pain Brain aneurysm Disposition: 01 HOME, SELF-CARE Condition: Improved Departure-Patient Inst. Decision time for Depature: 17:42 Referrals: [facility] (PCP/Family) Primary Care Physician Patient Instructions: Brain Aneurysm, Chest Pain That Is Not Caused by the Heart (DC), LOCAL PHYSICIAN LIST, Labyrinthitis, Serous Otitis Media, Sinusitis in Adults, Vertigo (a Type of Dizziness) (DC) Add. Discharge Instructions: Drink lots of fluids to help keep your secretions moist. Tylenol 1000 mg as necessary for headache. Muscle rubs for your chest wall pain and vapor rubs such as Vicks for your headache. Start taking Augmentin 1 tablet twice a day with food for the next 10 days for your sinus infection and ear infection. If you have vertigo or dizziness then meclizine 25 mg every 6 hours should be used. Plan to follow-up with your primary care doctor for reevaluation of symptoms if not seeing some improvement over the next 3 to 4 days on antibiotics. All discharge instructions reviewed with patient and/or family. Voiced understanding. Scripts Amoxicillin/Potassium Clav (Augmentin 875-125 Tablet) 1 Each Tablet 1 EACH PO BID for 10 Days, #20 TAB 0 Refills Prov: PEÑA LIVE 09/20/20 PEÑA LIVE Sep 20, 2020 15:21
--- NOTE | 2020-09-20 15:29 | NUR ---
Lyudmila dobson in [facility] - 09/20/20 at 1529 by PMCCLURE RT CALLED FOR MAHNAZ.
--- NOTE | 2020-09-20 15:29 | NUR ---
RT CALLED FOR ABG.
[2020-09-20] MEDS ORDERED: IOHEXOL 350 MG/ML 100 ML (OMNIPAQUE 350) VIAL IV ONE (15:30)
[2020-09-20] MEDS ORDERED: HOLD METFORMIN - RECEIVED CONTRAST 20 ML VIAL IV SCH (15:30)
[2020-09-20] MEDS ORDERED: CATHETER FLUSH 10 ML SYR IV PRN (15:30)
[2020-09-20] MEDS ORDERED: NS 100 ML (IVPB) BAG IV ONE (15:30)
[2020-09-20 15:34] LABS: BASOPHILS # (AUTO) 0.1 10^3/uL (0.0-0.1); BASOPHILS % (AUTO) 1 % (0-10); EOSINOPHILS # (AUTO) 0.3 10^3/uL (0.0-0.3); EOSINOPHILS % (AUTO) 3 % (0-10); HEMATOCRIT 45 % (35-52); HEMOGLOBIN 14.8 g/dL (11.5-16.0); LYMPHOCYTES # (AUTO) 3.1 10^3/uL (1.0-4.0); LYMPHOCYTES % (AUTO) 29 % (12-44); MEAN CORPUSCULAR HEMOGLOBIN 30 pg (25-34); MEAN CORPUSCULAR HGB CONC 33 g/dL (32-36); MEAN CORPUSCULAR VOLUME 89 fL (80-99); MEAN PLATELET VOLUME 11.1 fL (9.0-12.2); MONOCYTES # (AUTO) 0.5 10^3/uL (0.0-1.0); MONOCYTES % (AUTO) 5 % (0-12); NEUTROPHILS # (AUTO) 6.5 10^3/uL (1.8-7.8); NEUTROPHILS % (AUTO) 62 % (42-75); PLATELET COUNT 319 10^3/uL (130-400); WHITE BLOOD COUNT 10.5 10^3/uL (4.3-11.0)
[2020-09-20 15:40] LABS: ALBUMIN 4.3 GM/DL (3.2-4.5); CHLORIDE 102 MMOL/L (98-107); POTASSIUM 3.5 MMOL/L (3.6-5.0); SODIUM 137 MMOL/L (135-145)
[2020-09-20 15:41] LABS: CALCIUM 9.3 MG/DL (8.5-10.1)
[2020-09-20 15:42] LABS: INR 0.9 (0.8-1.4); PROTHROMBIN TIME PATIENT 12.4 SEC (12.2-14.7)
[2020-09-20 15:43] LABS: GLUCOSE 165 MG/DL (70-105); TOTAL PROTEIN 7.6 GM/DL (6.4-8.2)
[2020-09-20 15:44] LABS: CARBON DIOXIDE 25 MMOL/L (21-32)
[2020-09-20 15:45] LABS: BILIRUBIN,TOTAL 0.6 MG/DL (0.1-1.0)
[2020-09-20 15:46] LABS: ALKALINE PHOSPHATASE 97 U/L (40-136); CREATININE SERUM 0.84 MG/DL (0.60-1.30); GFR ESTIMATED > 60
[2020-09-20 15:47] LABS: BUN/CREATININE RATIO 14
[2020-09-20 15:49] LABS: ALANINE AMINOTRANSFERASE 23 U/L (0-55); MAGNESIUM 1.9 MG/DL (1.6-2.4)
[2020-09-20 15:50] LABS: BILIRUBIN,URINE NEGATIVE (NEGATIVE); CLARITY,URINE CLEAR; COLOR,URINE YELLOW; GLUCOSE, URINE (UA) NEGATIVE (NEGATIVE); KETONES,URINE NEGATIVE (NEGATIVE); LEUKOCYTE ESTERASE ,URINE NEGATIVE (NEGATIVE); NITRITE,URINE NEGATIVE (NEGATIVE); PH,URINE 5.5 (5-9); PROTEIN,URINE 2+ (NEGATIVE)
[2020-09-20 16:08] LABS: BACTERIA,URINE NEGATIVE /HPF; SQUAMOUS EPITHELIAL CELL,UR 25-50 /HPF
[2020-09-20] MEDS ORDERED: LORazepam INJ 2 MG/ML (ATIVAN) VIAL IVP ONE (16:15)
--- NOTE | 2020-09-20 16:15 | Diagnostic Imaging Report ---
PATIENT HISTORY: Chest pain. TECHNIQUE: Single frontal view of the chest. COMPARISON: 01/21/2015. FINDINGS: The lung volumes are normal. No focal consolidation is seen. No large pleural effusion or pneumothorax is seen. The cardiomediastinal silhouette is normal in size and contour. No acute osseous abnormality is seen. IMPRESSION: No acute pulmonary abnormality seen. Dictated by: Dictated on workstation # [id number]
--- NOTE | 2020-09-20 17:08 | Diagnostic Imaging Report ---
PROCEDURE: CT angiography of the head and CT angiography of the neck with and without contrast. TECHNIQUE: Contiguous noncontrast images were obtained from the skull base through the vertex. After intravenous contrast administration, helical CT angiography of the neck was performed. Source data was reformatted into 3D MIP projections. Delayed post contrast acquisition was also obtained. Auto Exposure Controls were utilized during the CT exam to meet ALARA standards for radiation dose reduction. INDICATION: Severe frontal headache. History of intracranial aneurysm status post clipping. COMPARISON: None available. FINDINGS: NONCONTRAST HEAD: No intracranial hyperdense hemorrhage or space-occupying mass. No hydrocephalus or midline shift. There are aneurysm clips at the bilateral carotid terminus. Basilar cisterns are widely patent. Bilateral frontotemporal craniotomies. No acute calvarial lesion. Paranasal sinuses and mastoid air cells are clear. CTA HEAD: Bilateral distal internal carotid arteries are widely patent and there is no carotid terminus aneurysm. The M1 and M2 divisions of the bilateral middle cerebral arteries appear patent allowing for the artifact associated with the aneurysm clips. There is a 4 x 3 mm aneurysm arising from the anterior communicating artery and this has a narrow neck. Anterior cerebral arteries are patent. Basilar artery is widely patent. Posterior cerebral arteries are patent. No aneurysm at the basilar tip or posterior communicating arteries. No pathologic enhancement on delayed-phase imaging. CTA NECK: Aortic arch is normal in appearance. A two-vessel branching pattern is present and the great vessels are widely patent. The bilateral common carotid arteries are normal. There is no stenosis of the internal carotid arteries per NASCET criteria. Cervical divisions of the internal carotid arteries are widely patent. Vertebral arteries are codominant and their origins are normal. No cervical lymphadenopathy. Lung apices are clear. IMPRESSION: 1. 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 2. No intracranial large vessel occlusion. 3. No intracranial hemorrhage. 4. No arterial stenosis or occlusion within the major neck arteries. Dictated by: Dictated on workstation # [id number]
[2020-09-20] MEDS ORDERED: AMOX-358 PO (17:45)
[2020-09-20 17:52] VITALS: BP 155/88
== END 2020-09-20 17:52 | disposition home or self-care (01) ==
LOC: EDUNIT# 14:42 → ER 14:43
DX: J32.9 Chronic sinusitis, unspecified (principal); H83.01 Labyrinthitis, right ear; H66.91 Otitis media, unspecified, right ear; R42 Dizziness and giddiness; R20.2 Paresthesia of skin; R07.89 Other chest pain; I67.1 Cerebral aneurysm, nonruptured; F41.9 Anxiety disorder, unspecified; F17.210 Nicotine dependence, cigarettes, uncomplicated; Z79.52 Long term (current) use of systemic steroids
CPT/HCPCS: 36415; 70496; 70498; 71045; 80053; 81000; 83735; 83874; 84484; 84703; 85025; 85610; 85730; 93005

== ENCOUNTER 2022-01-20 19:04 | Emergency (ER) | payer MEDICAID ==
[~2022-01-20] VITALS: Ht 165 cm; Wt 99.9 kg
[~2022-01-20 19:04] MED LIST changes: +AMOX-358 PO
--- NOTE | 2022-01-20 19:48 | ED Lower Extremity ---
General Chief Complaint: Lower Extremity Stated Complaint: L LEG SWELLING/REDNESS Nursing Triage Note: c/o left ankle swelling/redness x1 month. treated with 2 courses abx without improvement. sent here from [facility] for ultrasound/blood draw. Source: patient Exam Limitations: no limitations (AMY DIAZ APRN) History of Present Illness Date Seen by Provider: January 20, 2022 Time Seen by Provider: 19:46 Initial Comments to ER with left ankle redness swelling and pain for 1 month. She is been going to the walk-in clinic. She was initially on cephalexin for about 5 days when that caused her to have a yeast infection so she stopped it started DiflucanAnd then was transitioned to Bactrim which she has been on for 6 days now. She denies any improvement. No fevers or chills. states that she did have this once before, it swelled up, it was very red and tender. No cause was identified. Concern for DVT so she was sent here to the emergency room tonight. Onset: this afternoon Severity: moderate Pain/Injury Location: left ankle Modifying Factors: Worse With Movement (AMY DIAZ APRN) Allergies and Home Medications Allergies Coded Allergies: cephalexin (Verified Allergy, Unknown, 01/20/22) Patient Home Medication List Home Medication List Reviewed: Yes (AMY DIAZ APRN) Doxycycline Hyclate (Doxycycline Hyclate) 100 Mg Tablet, 100 MG PO BID Prescribed by: AMY DIAZ on 01/20/222028 Discontinued Medications Amoxicillin/Potassium Clav (Augmentin 875-125 Tablet) 1 Each Tablet, 1 EACH PO BID Discontinued Reason: Referral/FU Appt-Addtl Prescribed by: PEÑA LIVE on 09/20/20 1745 Last Action: Discontinued Prednisone (Prednisone) 20 Mg Tab, 20 MG PO PD Discontinued Reason: Referral/FU Appt-Addtl Prescribed by: SUPA COTTER on 03/09/18 1711 Last Action: Discontinued Tramadol HCl (Tramadol HCl) 50 Mg Tablet, 1 TAB PO 3 times a day Discontinued Reason: Referral/FU Appt-Addtl Prescribed by: SUPA COTTER on 03/09/18 1659 Last Action: Discontinued Review of Systems Constitutional: see HPI EENTM: see HPI Respiratory: no symptoms reported Cardiovascular: no symptoms reported Genitourinary: no symptoms reported Musculoskeletal: see HPI Skin: see HPI Psychiatric/Neurological: No Symptoms Reported (AMY DIAZ APRN) Past Jxkehlp-Gxvaoi-Newwth Hx Patient Social History Tobacco Use?: Yes Substance use?: No Alcohol Use?: No Pt feels they are or have been: No (AMY DIAZ APRN) Seasonal Allergies Seasonal Allergies: No (AMY DIAZ APRN) Past Medical History Surgery/Hospitalization HX: aneurysm, brain coiling Surgeries: Yes (BRAIN ANEURYSM COILING) Vascular Surgery Respiratory: Yes (tobaccoism) Cardiac: No Neurological: Yes (BRAIN ANEURYSM X2) Last Menstrual Period: January 16, 2022 Reproductive Disorders: No Gastrointestinal: No Musculoskeletal: No Endocrine: No Cancer: No Psychosocial: No Integumentary: No Blood Disorders: No (AMY DIAZ APRN) Family Medical History No Pertinent Family Hx (AMY DIAZ APRN) Physical Exam Vital Signs Vital Signs - First Documented 01/20/22 19:25 Temp 36.9 Pulse 92 Resp 18 B/P (MAP) 151/104 (120) Pulse Ox 97 O2 Delivery Room Air (JASON CARLOS MD) Vital Signs Capillary Refill : Less Than 3 Seconds (AMY DIAZ APRN) Height, Weight, BMI Height: 5'5.00" Weight: 208lbs. 0oz. [id number]; 36.00 BMI Method:Stated General Appearance: WD/WN, no apparent distress Neck: non-tender, full range of motion Respiratory: no respiratory distress, no accessory muscle use Hips: bilateral hip non-tender, bilateral hip normal inspection, bilateral hip normal range of motion Legs: left leg other (Erythema and induration to a palm sized area to the medial aspect of the left ankle) Knees: bilateral knee non-tender, bilateral knee normal inspection, bilateral knee normal range of motion Ankles: bilateral ankle non-tender, bilateral ankle normal inspection, bilateral ankle normal range of motion Feet: bilateral foot non-tender, bilateral foot normal inspection, bilateral foot normal range of motion Neurologic/Psychiatric: alert, normal mood/affect, oriented x 3 Skin: normal color, warm/dry (AMY DIAZ APRN) Progress/Results/Core Measures Results/Orders Lab Results Laboratory Tests Test 01/20/22 20:00 Range/Units White Blood Count 9.8 4.3-11.0 10^3/uL Red Blood Count 4.74 3.80-5.11 10^6/uL Hemoglobin 14.1 11.5-16.0 g/dL Hematocrit 41 35-52 % Mean Corpuscular Volume 87 80-99 fL Mean Corpuscular Hemoglobin 30 25-34 pg Mean Corpuscular Hemoglobin Concent 34 32-36 g/dL Red Cell Distribution Width 12.4 10.0-14.5 % Platelet Count 297 130-400 10^3/uL Mean Platelet Volume 10.9 9.0-12.2 fL Immature Granulocyte % (Auto) 0 % Neutrophils (%) (Auto) 58 42-75 % Lymphocytes (%) (Auto) 29 12-44 % Monocytes (%) (Auto) 8 0-12 % Eosinophils (%) (Auto) 4 0-10 % Basophils (%) (Auto) 1 0-10 % Neutrophils # (Auto) 5.8 1.8-7.8 10^3/uL Lymphocytes # (Auto) 2.9 1.0-4.0 10^3/uL Monocytes # (Auto) 0.8 0.0-1.0 10^3/uL Eosinophils # (Auto) 0.3 0.0-0.3 10^3/uL Basophils # (Auto) 0.1 0.0-0.1 10^3/uL Immature Granulocyte # (Auto) 0.0 0.0-0.1 10^3/uL D-Dimer 0.50 H 0.00-0.49 UG/ML Sodium Level 135 135-145 MMOL/L Potassium Level 3.8 3.6-5.0 MMOL/L Chloride Level 104 98-107 MMOL/L Carbon Dioxide Level 20 L 21-32 MMOL/L Anion Gap 11 5-14 MMOL/L Blood Urea Nitrogen 10 7-18 MG/DL Creatinine 0.78 0.60-1.30 MG/DL Estimat Glomerular Filtration Rate 96 BUN/Creatinine Ratio 13 Glucose Level 94 70-105 MG/DL Calcium Level 8.9 8.5-10.1 MG/DL (JASON CARLOS MD) Medications Given in ED Current Medications Medications Dose Ordered Sig/Shaheen Route Start Time Stop Time Status Last Admin Dose Admin Dexamethasone Sodium Phosphate 10 mg ONCE ONCE IM 01/20/22 20:45 01/20/22 20:41 DC 01/20/22 20:41 10 MG (JASON CARLOS MD) Vital Signs/I&O 01/20/22 01/20/22 19:25 20:41 Temp 36.9 36.8 Pulse 92 78 Resp 18 16 B/P (MAP) 151/104 (120) 149/84 Pulse Ox 97 99 O2 Delivery Room Air Room Air (JSAON CARLOS MD) Blood Pressure Mean: 120 Departure Impression Primary Impression: Abscess or cellulitis of ankle Disposition: HOME, SELF-CARE Condition: Stable Departure-Patient Inst. Decision time for Depature: 20:27 (AMY DIAZ APRN) Referrals: NO,LOCAL PHYSICIAN (PCP/Family) Primary Care Physician Patient Instructions: Cellulitis (Skin Infection), Adult (DC) Add. Discharge Instructions: 1. Stop the Bactrim changed to the new antibiotic called doxycycline. Return to ER for any concerns. Follow-up with your doctor next week. All discharge instructions reviewed with patient and/or family. Voiced understanding. Scripts Doxycycline Hyclate (Doxycycline Hyclate) 100 Mg Tablet 100 MG PO BID, #20 TAB 0 Refills Prov: AMY DIAZ APRN 01/20/22 PHYSICIAN ATTESTATION NOTE: I was present in the ER while [employer] / PA saw the patient, but I was not involved in the care, exam, or management of the patient. (JASON CARLOS MD) AMY DIAZ APRN January 20, 2022 19:48 JASON CARLOS MD January 21, 2022 04:12
[2022-01-20 20:06] LABS: BASOPHILS # (AUTO) 0.1 10^3/uL (0.0-0.1); BASOPHILS % (AUTO) 1 % (0-10); EOSINOPHILS # (AUTO) 0.3 10^3/uL (0.0-0.3); EOSINOPHILS % (AUTO) 4 % (0-10); HEMATOCRIT 41 % (35-52); HEMOGLOBIN 14.1 g/dL (11.5-16.0); LYMPHOCYTES # (AUTO) 2.9 10^3/uL (1.0-4.0); LYMPHOCYTES % (AUTO) 29 % (12-44); MEAN CORPUSCULAR HEMOGLOBIN 30 pg (25-34); MEAN CORPUSCULAR HGB CONC 34 g/dL (32-36); MEAN CORPUSCULAR VOLUME 87 fL (80-99); MEAN PLATELET VOLUME 10.9 fL (9.0-12.2); MONOCYTES # (AUTO) 0.8 10^3/uL (0.0-1.0); MONOCYTES % (AUTO) 8 % (0-12); NEUTROPHILS # (AUTO) 5.8 10^3/uL (1.8-7.8); NEUTROPHILS % (AUTO) 58 % (42-75); PLATELET COUNT 297 10^3/uL (130-400); WHITE BLOOD COUNT 9.8 10^3/uL (4.3-11.0)
[2022-01-20 20:20] LABS: CALCIUM 8.9 MG/DL (8.5-10.1); CREATININE SERUM 0.78 MG/DL (0.60-1.30); POTASSIUM 3.8 MMOL/L (3.6-5.0)
[2022-01-20] MEDS ORDERED: DOXY100T2 PO (20:29)
[2022-01-20 20:41] VITALS: BP 149/84
[2022-01-20] MEDS ORDERED: DOXYCYCLINE 100 MG (VIBRAMYCIN) TABLET PO SCH (20:45)
== END 2022-01-20 20:41 | disposition home or self-care (01) ==
LOC: EDUNIT# 19:04 → ER 19:06
DX: L53.9 Erythematous condition, unspecified (principal); F17.200 Nicotine dependence, unspecified, uncomplicated; Z88.1 Allergy status to other antibiotic agents
CPT/HCPCS: 36415; 80048; 85025; 85379

== ENCOUNTER → 2022-06-09 | Outpatient (CLI) | payer MEDICAID ==
[~2022-06-09] MED LIST changes: +DOXY100T2 PO
--- NOTE | 2022-06-09 15:27 | Diagnostic Imaging Report ---
INDICATION: LEFT LEG PAIN TECHNIQUE: Multiple real-time grayscale images were obtained over the left lower extremity in various projections, bilaterally. Additional duplex Doppler and color Doppler images were also obtained. CORRELATION STUDY: None FINDINGS: Color and grayscale sonographic images demonstrate no intraluminal defect within the visualized portion of the common femoral, superficial femoral and/or popliteal veins to suggest thrombus formation. These vessels demonstrate normal response to compression and augmentation. No soft tissue fluid collection. IMPRESSION: 1. Negative for deep venous thrombosis of the left leg. Dictated by: Dictated on workstation # [id number]
== END ==
LOC: RAD 14:11
PROVIDERS: ATTEND Pediatrics
DX: M79.605 Pain in left leg (principal)

== ENCOUNTER 2022-09-12 07:09 | Inpatient (IN) | payer MEDICAID ==
[~2022-09-12] VITALS: Ht 165 cm; Wt 103.0 kg
[2022-09-12] MEDS ORDERED: NS IV 1000 ML 1,000 ML IV STA ×2 (07:27→08:28)
[2022-09-12] MEDS ORDERED: ONDANSETRON 4 MG/2 ML (SDV) Z0FRAN IVP ONE (07:30)
[2022-09-12] MEDS ORDERED: fentaNYL INJ 100 MCG/2 ML AMP IVP ONE ×2 (07:30→09:15)
--- NOTE | 2022-09-12 07:31 | ED Abdominal Pain ---
General Chief Complaint: Abdominal/GI Problems Stated Complaint: ABD PAIN Nursing Triage Note: PT AMB TO RM 6 PT CO OF SEVERE ABD PAIN STARTED 2 DAYS AGO L LOWER ABD. DENIES PROB W BOWELS OR BLADDER AT THIS X. Source of Information: Patient Exam Limitations: No Limitations History of Present Illness Date Seen by Provider: Sep 12, 2022 Time Seen by Provider: 07:19 Initial Comments Patient is a 46-year-old female who presents to the emergency room with a chief complaint of left flank and left lower quadrant abdominal pain. Onset 2 days ago. She has not taken anything for her pain. Moving around and sitting make and laying down make her pain worse. She does states she is nauseated but has not vomited. Last bowel movement was yesterday and she reports it was normal. She states she has a history of kidney problems and her urine has been dark. No prior abdominal surgeries. She has had brain aneurysm surgery x2. She takes medication for hypertension but admits that she is inconsistent with this. No burning with urination. Still having menstrual cycles, finished her menses yesterday. Allergies to cephalexin. Smoker, nondrinker, no recreational drugs. She has not had a colonoscopy before no family history of colon issues. Timing/Duration: 1-2 Days Severity/Quality: Severe Location: LLQ, Flank (left) Activities at Onset: None Modifying Factors: Improves With Other (standing up improves her pain) Associated Symptoms: Nausea/Vomiting Allergies and Home Medications Allergies Coded Allergies: cephalexin (Verified Allergy, Unknown, 01/20/22) Patient Home Medication List Home Medication List Reviewed: Yes Lisinopril/Hydrochlorothiazide (Lisinopril-Hctz 10-12.5 mg Tab) 10 Mg-12.5 Mg Tablet, 1 EA PO DAILY PRN for BLOOD PRESSURE, (Reported) Entered as Reported by: LISSETTE KHANNA on 09/12/22 1536 Last Action: Reviewed Discontinued Medications Doxycycline Hyclate (Doxycycline Hyclate) 100 Mg Tablet, 100 MG PO BID Discontinued Reason: No Longer Taking Prescribed by: AMY DIAZ on 01/20/222028 Last Action: Discontinued Review of Systems Review of Systems Constitutional: see HPI EENTM: No Symptoms Reported Respiratory: No Symptoms Reported Cardiovascular: No Symptoms Reported Gastrointestinal: Abdominal Pain, Nausea Genitourinary: Other ("urine is dark") Musculoskeletal: no symptoms reported Skin: no symptoms reported Psychiatric/Neurological: No Symptoms Reported All Other Systems Reviewed Negative Unless Noted: Yes Past Hfgiokp-Btlxls-Ifbdzt Hx Seasonal Allergies Seasonal Allergies: No Past Medical History Surgery/Hospitalization HX: aneurysm, brain coiling Surgeries: Yes (BRAIN ANEURYSM COILING) Vascular Surgery Respiratory: Yes (tobaccoism) Cardiac: No Neurological: Yes (BRAIN ANEURYSM X2) Last Menstrual Period: Sep 10, 2022 Reproductive Disorders: No Gastrointestinal: No Musculoskeletal: No Endocrine: No Cancer: No Psychosocial: No Integumentary: No Blood Disorders: No Family Medical History No Pertinent Family Hx Physical Exam Vital Signs Vital Signs - First Documented 09/12/22 07:22 Temp 36.7 Pulse 108 Resp 18 B/P (MAP) 170/113 (132) Pulse Ox 98 Capillary Refill : Less Than 3 Seconds Height/Weight/BMI Height: 5'5.00" Weight: 208lbs. 0oz. 94.565054cw; 36.00 BMI Method:Stated General Appearance: WD/WN, mild distress HEENT: PERRL/EOMI Neck: normal inspection Respiratory: lungs clear, normal breath sounds, no respiratory distress, no accessory muscle use Cardiovascular: regular rate, rhythm Gastrointestinal: soft, abnormal bowel sounds (hypoactive), guarding, tenderness (LLQ with involuntary guarding) Extremities: normal range of motion, normal inspection, no pedal edema Neurologic/Psychiatric: alert, normal mood/affect, oriented x 3 Skin: normal color, warm/dry; No rash Progress/Results/Core Measures Results/Orders Lab Results Laboratory Tests Test 09/12/22 07:20 09/12/22 07:28 Range/Units White Blood Count 16.3 H 4.3-11.0 10^3/uL Red Blood Count 4.94 3.80-5.11 10^6/uL Hemoglobin 14.7 11.5-16.0 g/dL Hematocrit 43 35-52 % Mean Corpuscular Volume 87 80-99 fL Mean Corpuscular Hemoglobin 30 25-34 pg Mean Corpuscular Hemoglobin Concent 34 32-36 g/dL Red Cell Distribution Width 12.9 10.0-14.5 % Platelet Count 327 130-400 10^3/uL Mean Platelet Volume 10.8 9.0-12.2 fL Immature Granulocyte % (Auto) 0 % Neutrophils (%) (Auto) 72 42-75 % Lymphocytes (%) (Auto) 18 12-44 % Monocytes (%) (Auto) 7 0-12 % Eosinophils (%) (Auto) 2 0-10 % Basophils (%) (Auto) 1 0-10 % Neutrophils # (Auto) 11.8 H 1.8-7.8 10^3/uL Lymphocytes # (Auto) 2.9 1.0-4.0 10^3/uL Monocytes # (Auto) 1.2 H 0.0-1.0 10^3/uL Eosinophils # (Auto) 0.3 0.0-0.3 10^3/uL Basophils # (Auto) 0.1 0.0-0.1 10^3/uL Immature Granulocyte # (Auto) 0.1 0.0-0.1 10^3/uL Neutrophils % (Manual) 73 % Lymphocytes % (Manual) 22 % Monocytes % (Manual) 4 % Eosinophils % (Manual) 1 % Blood Morphology Comment NORMAL Sodium Level 134 L 135-145 MMOL/L Potassium Level 4.0 3.6-5.0 MMOL/L Chloride Level 101 98-107 MMOL/L Carbon Dioxide Level 23 21-32 MMOL/L Anion Gap 10 5-14 MMOL/L Blood Urea Nitrogen 12 7-18 MG/DL Creatinine 0.80 0.60-1.30 MG/DL Estimat Glomerular Filtration Rate 93 BUN/Creatinine Ratio 15 Glucose Level 134 H 70-105 MG/DL Calcium Level 9.4 8.5-10.1 MG/DL Corrected Calcium 9.3 8.5-10.1 MG/DL Total Bilirubin 0.8 0.1-1.0 MG/DL Aspartate Amino Transf (AST/SGOT) 15 5-34 U/L Alanine Aminotransferase (ALT/SGPT) 20 0-55 U/L Alkaline Phosphatase 124 40-136 U/L Total Protein 7.6 6.4-8.2 GM/DL Albumin 4.1 3.2-4.5 GM/DL Urine Color YELLOW Urine Clarity CLEAR Urine pH 5.5 5-9 Urine Specific [place] >=1.030 1.016-1.022 Urine Protein 1+ H NEGATIVE Urine Glucose (UA) NEGATIVE NEGATIVE Urine Ketones NEGATIVE NEGATIVE Urine Nitrite NEGATIVE NEGATIVE Urine Bilirubin NEGATIVE NEGATIVE Urine Urobilinogen 0.2 < = 1.0 MG/DL Urine Leukocyte Esterase NEGATIVE NEGATIVE Urine RBC (Auto) 2+ H NEGATIVE Urine RBC 5-10 H /HPF Urine WBC NONE /HPF Urine Squamous Epithelial Cells 5-10 /HPF Urine Crystals NONE /LPF Urine Bacteria TRACE /HPF Urine Casts NONE /LPF Urine Mucus NEGATIVE /LPF Urine Other CLUE CELLS PRESENT /HPF Urine Culture Indicated NO Urine Test NEGATIVE NEGATIVE My Orders Orders - ALEKSANDRA BLANTON MD Ed Iv/Invasive Line Start (09/12/22 07:25) Cbc With Automated Diff (09/12/22 07:25) Comprehensive Metabolic Panel (09/12/22 07:25) Ua Culture If Indicated (09/12/22 07:25) Ct Abdomen/Pelvis Wo (09/12/22 07:25) Ns Iv 1000 Ml (Sodium Chloride 0.9%) (09/12/22 07:27) Fentanyl Inj (Sublimaze Injection) (09/12/22 07:30) Ondansetron Injection (Zofran Injectio (09/12/22 07:30) Manual Differential (09/12/22 07:20) Ciprofloxacin Iv 400mg/200ml (Cipro Iv S (09/12/22 08:30) Metronidazole 500mg/100ml Ivpb (Flagyl 5 (09/12/22 08:30) Ns Iv 1000 Ml (Sodium Chloride 0.9%) (09/12/22 08:28) Fentanyl Inj (Sublimaze Injection) (09/12/22 09:15) Ed Admission (Communication) (09/12/22 09:21) Medications Given in ED Vital Signs/I&O 09/12/22 07:22 Temp 36.7 Pulse 108 Resp 18 B/P (MAP) 170/113 (132) Pulse Ox 98 Blood Pressure Mean: 132 Progress Progress Note : Time: 09:01 Progress Note Patient re-examined after CT (found to have acute non-perforated diverticulitis) still exquisitely tender. No evidence of perforation on CT. Afebrile, a little tachy. Chem is normal. 16K WBC. U/A shows microscopic hematuria and clue cells. Given more fentanyl. Started on Cipro and flagyl. Anticipate the IV flagyl will also treat her suspected BV with clue cells in her Urine. Discussed with Dr Fuller - general surgeon nutritionalist. Will admit obs to [facility]/medicine with him as a consult. Diagnostic Imaging Diagonstic Imaging: CT Comments [facility] [place], [place] NAME: LILIA MCGINNIS [facility] REC#: [id number] PT STATUS: REG ER : 1975 PHYSICIAN: ALEKSANDRA BLANTON MD ADMIT DATE: 09/12/22/ER Draft Date of Exam:09/12/22 CT ABDOMEN/PELVIS WO PROCEDURE: CT abdomen and pelvis without contrast. TECHNIQUE: Multiple contiguous axial images were obtained through the abdomen and pelvis without the use of intravenous contrast. Auto Exposure Controls were utilized during the CT exam to meet ALARA standards for radiation dose reduction. INDICATION: Left lower quadrant abdominal pain. Nausea. COMPARISON: None FINDINGS: Included portions of lung bases are clear. CT ABDOMEN: There is colonic diverticulosis. Note is also made of focal moderate pericolonic stranding which appears to be epicentered around a diverticulum of the distal descending colon (image 119, series 2). There is small amount of free fluid within the adjacent pericolic gutter. There is no loculated fluid collection, pneumatosis, pneumoperitoneum, nor portal venous gas. Proximal large and small bowel loops are nondistended. Normal appendix is identified. The kidneys, adrenal glands, spleen, pancreas, and liver have an unremarkable noncontrast CT appearance. No abnormal mesenteric or retroperitoneal adenopathy is seen. Mild scattered calcified aortic atherosclerosis is noted. Osseous structures show no acute abnormalities. CT PELVIS: Urinary bladder is unopacified. No calculi are seen within urinary bladder. Again, there is small amount of free fluid within the pelvis. There is no loculated fluid collection or free air. No abnormal lymph nodes are seen. Osseous structures show no acute abnormalities. IMPRESSION: 1. Colonic diverticulosis with CT findings most suggestive of acute diverticulitis of the distal descending colon. Please note, colonic malignancy may present in a similar manner. Correlation with colonoscopy is advised when clinically appropriate. 2. Small amount of free fluid likely related to the above. No loculated fluid collection, pneumatosis, pneumoperitoneum, nor portal venous gas. Dictated on workstation # [id number] Dict: 09/12/22 0827 Trans: 09/12/22 0837 [id number] Interpreted by: GRANT ESPARZA MD Electronically signed by: Departure Communication (Admissions) Time/Spoke to Consulting Phy: 09:[address] Fuller Impression Primary Impression: Acute diverticulitis Disposition: ADMITTED INPATIENT Condition: Stable Admissions Decision to Admit Reason: Admit from ER (General) Decision to Admit/Date: Sep 12, 2022 Time/Decision to Admit Time: 09:01 Departure-Patient Inst. Referrals: NO,LOCAL PHYSICIAN (PCP/Family) Primary Care Physician ALEKSANDRA BLANTON MD Sep 12, 2022 07:31
[2022-09-12 07:38] LABS: BILIRUBIN,URINE NEGATIVE (NEGATIVE); CLARITY,URINE CLEAR; COLOR,URINE YELLOW; GLUCOSE, URINE (UA) NEGATIVE (NEGATIVE); KETONES,URINE NEGATIVE (NEGATIVE); LEUKOCYTE ESTERASE ,URINE NEGATIVE (NEGATIVE); NITRITE,URINE NEGATIVE (NEGATIVE); PH,URINE 5.5 (5-9); PROTEIN,URINE 1+ (NEGATIVE)
[2022-09-12 07:40] LABS: BASOPHILS # (AUTO) 0.1 10^3/uL (0.0-0.1); BASOPHILS % (AUTO) 1 % (0-10); EOSINOPHILS # (AUTO) 0.3 10^3/uL (0.0-0.3); EOSINOPHILS % (AUTO) 2 % (0-10); HEMATOCRIT 43 % (35-52); HEMOGLOBIN 14.7 g/dL (11.5-16.0); LYMPHOCYTES # (AUTO) 2.9 10^3/uL (1.0-4.0); LYMPHOCYTES % (AUTO) 18 % (12-44); MEAN CORPUSCULAR HEMOGLOBIN 30 pg (25-34); MEAN CORPUSCULAR HGB CONC 34 g/dL (32-36); MEAN CORPUSCULAR VOLUME 87 fL (80-99); MEAN PLATELET VOLUME 10.8 fL (9.0-12.2); MONOCYTES # (AUTO) 1.2 10^3/uL (0.0-1.0); MONOCYTES % (AUTO) 7 % (0-12); NEUTROPHILS # (AUTO) 11.8 10^3/uL (1.8-7.8); NEUTROPHILS % (AUTO) 72 % (42-75); PLATELET COUNT 327 10^3/uL (130-400); WHITE BLOOD COUNT 16.3 10^3/uL (4.3-11.0)
[2022-09-12 07:48] LABS: BACTERIA,URINE TRACE /HPF
[2022-09-12 07:49] LABS: URINE OTHER CLUE CELLS PRESENT /HPF
[2022-09-12 07:56] LABS: EOSINOPHILS % (MANUAL) 1 %; LYMPHOCYTES % (MANUAL) 22 %; MONOCYTES % (MANUAL) 4 %; NEUTROPHILS % (MANUAL) 73 %; RBC MORPH NORMAL
[2022-09-12 08:02] LABS: ALBUMIN 4.1 GM/DL (3.2-4.5); BILIRUBIN,TOTAL 0.8 MG/DL (0.1-1.0); CALCIUM 9.4 MG/DL (8.5-10.1); CREATININE SERUM 0.8 MG/DL (0.60-1.30); TOTAL PROTEIN 7.6 GM/DL (6.4-8.2)
[2022-09-12] MEDS ORDERED: metroNIDAZOLE 500MG/100ML IVPB 100 ML IV ONE (08:30)
[2022-09-12] MEDS ORDERED: CIPROFLOXACIN IV 400MG/200ML 200 ML IV ONE (08:30)
--- NOTE | 2022-09-12 08:38 | Diagnostic Imaging Report ---
PROCEDURE: CT abdomen and pelvis without contrast. TECHNIQUE: Multiple contiguous axial images were obtained through the abdomen and pelvis without the use of intravenous contrast. Auto Exposure Controls were utilized during the CT exam to meet ALARA standards for radiation dose reduction. INDICATION: Left lower quadrant abdominal pain. Nausea. COMPARISON: None FINDINGS: Included portions of lung bases are clear. CT ABDOMEN: There is colonic diverticulosis. Note is also made of focal moderate pericolonic stranding which appears to be epicentered around a diverticulum of the distal descending colon (image 119, series 2). There is small amount of free fluid within the adjacent pericolic gutter. There is no loculated fluid collection, pneumatosis, pneumoperitoneum, nor portal venous gas. Proximal large and small bowel loops are nondistended. Normal appendix is identified. The kidneys, adrenal glands, spleen, pancreas, and liver have an unremarkable noncontrast CT appearance. No abnormal mesenteric or retroperitoneal adenopathy is seen. Mild scattered calcified aortic atherosclerosis is noted. Osseous structures show no acute abnormalities. CT PELVIS: Urinary bladder is unopacified. No calculi are seen within urinary bladder. Again, there is small amount of free fluid within the pelvis. There is no loculated fluid collection or free air. No abnormal lymph nodes are seen. Osseous structures show no acute abnormalities. IMPRESSION: 1. Colonic diverticulosis with CT findings most suggestive of acute diverticulitis of the distal descending colon. Please note, colonic malignancy may present in a similar manner. Correlation with colonoscopy is advised when clinically appropriate. 2. Small amount of free fluid likely related to the above. No loculated fluid collection, pneumatosis, pneumoperitoneum, nor portal venous gas. Dictated by: Dictated on workstation # [id number]
--- NOTE | 2022-09-12 10:22 | Consultation - Surgery ---
STELLA RAMOS 09/12/22 1022: History of Present Illness History of Present Illness Patient Consulted On(hamzah/time) 09/12/22 10:15 Date Seen by Provider: Sep 12, 2022 Time Seen by Provider: 10:10 History of Present Illness Surgical consult requested for Mrs. Mcginnis, 46 YO female, who was found in the ED to have acute non-perforated diverticulitis. Pt states she developed sharp LLQ abdominal pain x 3 days ago, that initially she thought was gas pain however it continued to progressively worsen. States she has never had pain like this before. Nothing makes pain better. Deep breathing, laying on left side and touching abdomen makes pain worse. Reports pain radiates from LLQ to left flank and umbilical area. She has associated chills and nausea, which have both improved since antiemetics in ED. She has a mild headache now, but typical from her baseline. Denies blood in stool, dysuria, vomiting, diarrhea, chest pain and shortness of breath. She has hx of HTN and x 3 brain aneurysms (1 currently). No abdominal surgeries. She has had x 2 surgeries for brain aneurysms. She is a smoker, denies ETOH and drugs. Father had lung cancer, but no other cancers in family. Allergies and Home Medications Allergies Coded Allergies: cephalexin (Verified Allergy, Unknown, 01/20/22) Patient Home Medication List Home Medication List Reviewed: Yes Doxycycline Hyclate (Doxycycline Hyclate) 100 Mg Tablet, 100 MG PO BID Prescribed by: AMY DIAZ on 01/20/222028 Past Pcjvbfm-Tsxzya-Hsmmmx Hx Patient Social History Smoking Status: Current Everyday Smoker Type Used: Cigarettes 2nd Hand Smoke Exposure: Yes Recent Hopitalizations: No Alcohol Use?: No Have you traveled recently?: No Seasonal Allergies Seasonal Allergies: No Surgeries History of Surgeries: Yes (BRAIN ANEURYSM COILING) Surgeries: Vascular Surgery (x 2 on brain aneurysms) Respiratory History of Respiratory Disorde: Yes (tobaccoism) Cardiovascular History of Cardiac Disorders: No Neurological History of Neurological Disord: Yes (BRAIN ANEURYSM X2) Reproductive System Hx Reproductive Disorders: No Gastrointestinal History of Gastrointestinal Di: No Musculoskeletal History of Musculoskeletal Dis: No Endocrine History of Endocrine Disorders: No Cancer History of Cancer: No Psychosocial History of Psychiatric Problem: No Integumentary History of Skin or Integumenta: No Blood Transfusions History of Blood Disorders: No Family Medical History Significant Family History: No Pertinent Family Hx, Cancer (Father - lung) Review of Systems-General Constitutional: chills (improved since ED admission); No diaphoresis, No dizziness, No malaise EENTM: No hearing loss, No vision loss, No throat pain Respiratory: No cough, No dyspnea on exertion Cardiovascular: No chest pain, No edema Gastrointestinal: LLQ, abdominal pain (LLQ); No diarrhea, No hematemesis, No loss of appetite, No melena; nausea; No vomiting Genitourinary: No decreased output, No dysuria Musculoskeletal: No joint pain, No muscle pain Skin: No pruritus, No rash Psychiatric/Neurological: Headache (baseline); Denies Tremors, Denies Weakness Physical Exam-General Problems Physical Exam Vital Signs Vital Signs - First Documented 09/12/22 09/12/22 07:22 10:11 Temp 36.7 Pulse 108 Resp 18 B/P (MAP) 170/113 (132) Pulse Ox 98 O2 Delivery Room Air Capillary Refill : Less Than 3 Seconds General Appearance: WD/WN, no apparent distress, obese Eyes: Bilateral Eye PERRL, Bilateral Eye EOMI HEENT: PERRL/EOMI; No scleral icterus (R), No scleral icterus (L), No pale conjunctivae (R), No pale conjunctivae (L) Neck: full range of motion, supple Respiratory: lungs clear, normal breath sounds, no respiratory distress, no accessory muscle use Cardiovascular: normal peripheral pulses, regular rate, rhythm, no edema, no gallop, no JVD, no murmur Peripheral Pulses: 2+ Dorsalis Pedis (R), 2+ Left Dors-Pedis (L), 2+ Radial Pulses (R), 2+ Radial Pulses (L) Gastrointestinal: normal bowel sounds, distended (mild); No rebound; tenderness (LLQ) Back: CVA tenderness (L) Extremities: non-tender, no pedal edema, no calf tenderness, normal capillary refill Neurologic/Psychiatric: no motor/sensory deficits, alert, normal mood/affect, oriented x 3 Skin: normal color, warm/dry Lymphatic: no adenopathy Data Review Labs Laboratory Tests 09/12/22 07:20: White Blood Count 16.3H, Red Blood Count 4.94, Hemoglobin 14.7, Hematocrit 43, Mean Corpuscular Volume 87, Mean Corpuscular Hemoglobin 30, Mean Corpuscular Hemoglobin Concent 34, Red Cell Distribution Width 12.9, Platelet Count 327, Mean Platelet Volume 10.8, Immature Granulocyte % (Auto) 0, Neutrophils (%) (Auto) 72, Lymphocytes (%) (Auto) 18, Monocytes (%) (Auto) 7, Eosinophils (%) (Auto) 2, Basophils (%) (Auto) 1, Neutrophils # (Auto) 11.8H, Lymphocytes # (Auto) 2.9, Monocytes # (Auto) 1.2H, Eosinophils # (Auto) 0.3, Basophils # (Auto) 0.1, Immature Granulocyte # (Auto) 0.1, Neutrophils % (Manual) 73, Lymphocytes % (Manual) 22, Monocytes % (Manual) 4, Eosinophils % (Manual) 1, Blood Morphology Comment NORMAL, Sodium Level 134L, Potassium Level 4.0, Chloride Level 101, Carbon Dioxide Level 23, Anion Gap 10, Blood Urea Nitrogen 12, Creatinine 0.80, Estimat Glomerular Filtration Rate 93, BUN/Creatinine Ratio 15, Glucose Level 134H, Calcium Level 9.4, Corrected Calcium 9.3, Total Bilirubin 0.8, Aspartate Amino Transf (AST/SGOT) 15, Alanine Aminotransferase (ALT/SGPT) 20, Alkaline Phosphatase 124, Total Protein 7.6, Albumin 4.1 09/12/22 07:28: Urine Color YELLOW, Urine Clarity CLEAR, Urine pH 5.5, Urine Specific [place] >=1.030, Urine Protein 1+H, Urine Glucose (UA) NEGATIVE, Urine Ketones NEGATIVE, Urine Nitrite NEGATIVE, Urine Bilirubin NEGATIVE, Urine Urobilinogen 0.2, Urine Leukocyte Esterase NEGATIVE, Urine RBC (Auto) 2+H, Urine RBC 5-10H, Urine WBC NONE, Urine Squamous Epithelial Cells 5-10, Urine Crystals NONE, Urine Bacteria TRACE, Urine Casts NONE, Urine Mucus NEGATIVE, Urine Other CLUE CELLS PRESENT, Urine Culture Indicated NO Radiology [facility], [facility]. [place], [place] NAME: LILIA MCGINNIS Mackenzie [facility] REC#: [id number] PT STATUS: REG ER : 1975 PHYSICIAN: ALEKSANDRA BLANTON MD ADMIT DATE: 09/12/22/ER Draft Date of Exam:09/12/22 CT ABDOMEN/PELVIS WO PROCEDURE: CT abdomen and pelvis without contrast. TECHNIQUE: Multiple contiguous axial images were obtained through the abdomen and pelvis without the use of intravenous contrast. Auto Exposure Controls were utilized during the CT exam to meet ALARA standards for radiation dose reduction. INDICATION: Left lower quadrant abdominal pain. Nausea. COMPARISON: None FINDINGS: Included portions of lung bases are clear. CT ABDOMEN: There is colonic diverticulosis. Note is also made of focal moderate pericolonic stranding which appears to be epicentered around a diverticulum of the distal descending colon (image 119, series 2). There is small amount of free fluid within the adjacent pericolic gutter. There is no loculated fluid collection, pneumatosis, pneumoperitoneum, nor portal venous gas. Proximal large and small bowel loops are nondistended. Normal appendix is identified. The kidneys, adrenal glands, spleen, pancreas, and liver have an unremarkable noncontrast CT appearance. No abnormal mesenteric or retroperitoneal adenopathy is seen. Mild scattered calcified aortic atherosclerosis is noted. Osseous structures show no acute abnormalities. CT PELVIS: Urinary bladder is unopacified. No calculi are seen within urinary bladder. Again, there is small amount of free fluid within the pelvis. There is no loculated fluid collection or free air. No abnormal lymph nodes are seen. Osseous structures show no acute abnormalities. IMPRESSION: 1. Colonic diverticulosis with CT findings most suggestive of acute diverticulitis of the distal descending colon. Please note, colonic malignancy may present in a similar manner. Correlation with colonoscopy is advised when clinically appropriate. 2. Small amount of free fluid likely related to the above. No loculated fluid collection, pneumatosis, pneumoperitoneum, nor portal venous gas. Dictated on workstation # [id number] Dict: 09/12/22 0827 Trans: 09/12/22 0837 [id number] Interpreted by: GRANT ESPARZA MD Electronically signed by: Assessment/Plan Assessment/Plan Assessment/Plan Acute Diverticulitis - nonperforated LLQ pain Nausea HTN Hx of brain aneurysms Smoker IVF Abx - Ciprofloxacin and metronidazole Antiemetics Will observe and intervene surgically if indicated RENEA ENGLE DO 09/12/22 1517: History of Present Illness History of Present Illness History of Present Illness Consult requested by Dr. Rao for Diverticulitis. Patient is a 46 year old female with 3 days left lower quadrant and left flank pain. Patient states moving and touching the abdomen makes worse. Radiates to umbilical area at times. Moderates to severe in nature. Has not had colonoscopy. Having chills and nausea. No emesis or diarrhea. Has chronic headaches which she has headache at this time. Hx or aneurysms. Denies fever sweats or chest pain at this time. Ct scan showing area of distal descending colon with inflammation consistent with diverticulitis. Allergies and Home Medications Allergies Coded Allergies: cephalexin (Verified Allergy, Unknown, 01/20/22) Patient Home Medication List Home Medication List Reviewed: Yes Doxycycline Hyclate (Doxycycline Hyclate) 100 Mg Tablet, 100 MG PO BID Prescribed by: AMY DIAZ on 01/20/222028 Past Fmskmzk-Vmeetv-Ckcyjb Hx Reviewed Nursing Assessment Reviewed/Agree w Nursing PMH: Yes Family Medical History Significant Family History: Cancer (Father - lung) Review of Systems-General Constitutional: chills (improved since ED admission); No diaphoresis EENTM: No hearing loss, No vision loss, No throat pain Respiratory: No cough, No dyspnea on exertion Cardiovascular: No chest pain, No edema Gastrointestinal: LLQ, abdominal pain (LLQ), nausea; No vomiting Genitourinary: No decreased output, No dysuria Musculoskeletal: No joint pain, No muscle pain Skin: No pruritus, No rash Psychiatric/Neurological: Headache (baseline); Denies Tremors, Denies Weakness All Other Systems Reviewed Negative Unless Noted: Yes (Negative excepted noted.) Physical Exam-General Problems Physical Exam General Appearance: WD/WN, no apparent distress, obese HEENT: PERRL/EOMI, normal ENT inspection Neck: non-tender, supple Respiratory: chest non-tender, no respiratory distress, no accessory muscle use Cardiovascular: regular rate, rhythm, no JVD Gastrointestinal: soft; No guarding, No rebound; tenderness (LLQ) Rectal: deferred Back: no CVA tenderness, no vertebral tenderness, CVA tenderness (L) Extremities: non-tender Neurologic/Psychiatric: no motor/sensory deficits, alert, normal mood/affect, oriented x 3 Skin: normal color, warm/dry Lymphatic: no adenopathy Assessment/Plan Assessment/Plan Assessment/Plan Acute Diverticulitis - nonperforated LLQ pain Nausea HTN Hx of brain aneurysms Smoker IVF Abx - Ciprofloxacin and metronidazole Antiemetics Will need colonoscopy about 6-8 weeks after symptoms resolve NPO Conservative measures at this time. When pain/symptoms decrease will start clears. Supervisory-Addendum Brief Verification & Attestation Participated in pt care: history, MDM, physical Personally performed: exam, history, MDM, supervision of care Care discussed with: Medical Student Procedures: n/a Results interpretation: Verified all documentation Verification and Attestation of Medical Student E/M Service A medical student performed and documented this service in my presence. I reviewed and verified all information documented by the medical student and made modifications to such information, when appropriate. I personally performed the physical exam and medical decision making. Renea Engle, Sep 12, 2022,15:20 STELLA RAMOS Sep 12, 2022 10:22 RENEA ENGLE DO Sep 12, 2022 15:17
[2022-09-12 10:34] VITALS: BP 139/83
[2022-09-12] MEDS: ENOXAPARIN 40 MG/0.4 ML (LOVENOX) SYR SC SCH (10:36)
[2022-09-12] MEDS: NS IV 1000 ML 1,000 ML IV SCH ×2 (10:36→18:40)
[2022-09-12] MEDS: CIPROFLOXACIN IV 400MG/200ML 200 ML IV SCH ×2 (11:03→21:53)
[2022-09-12] MEDS ORDERED: morphine INJ 4 MG/ML 1 ML (VIAL/SYRINGE) IVP PRN (12:30)
[2022-09-12 12:32] VITALS: BP 142/89
[2022-09-12] MEDS ORDERED: morphine INJ 4 MG/ML 1 ML (VIAL/SYRINGE) IV PRN (13:00)
--- NOTE | 2022-09-12 13:09 | History & Physical ---
BETO HOLM 09/12/22 1309: HPI History of Present Illness: Patient presented to ER this morning with chief complaint of LLQ abdominal pain with radiation to back. This started 2 days ago and pain has progressively worsened. She described it as a sharp pain. She tried taking ibuprofen and tylenol at home, but no relief. She also endorses left flank pain along with abdominal cramping. She says that abdominal cramping is normal during her mestrual cycle. She finished her last menstrual cycle 2 days ago, but says cramping has not subsided. Patient endorses headache. Denies shortness of breath , chest pain, diarrhea, constipation, hematochezia or dysuria. Source: patient Exam Limitations: no limitations Date seen by provider: Sep 12, 2022 Time Seen by Provider: 12:30 Attending Physician Gabriella,Local Physician PCP Admitting Physician: Avelino Foster MD Attending Physician: Avelino Foster MD Consult Date of Admission Sep 12, 2022 at 09:22 Home Medications Home Medications Reviewed patient Home Medication Reconciliation performed by pharmacy medication reconciliations personnel technician and/or nursing. Patients Allergies have been reviewed. Allergies Coded Allergies: cephalexin (Verified Allergy, Unknown, 01/20/22) DRT-Qaqhji-Wicnnn Hx Patient Social History Employed/Student: employed Smoking Status: Current Everyday Smoker 2nd Hand Smoke Exposure: Yes Recent Hopitalizations: No Alcohol Use?: No Substance type: Nicotine Tobacco type used: Cigarettes Have you traveled recently?: No Immunizations Up To Date Influenza Vaccine Up-to-Date: Yes; Up-to-Date Past Medical History HTN Cerebral aneurysm w/ rupture Family Medical History Significant Family History: No Pertinent Family Hx, Cancer (Father - lung), GI Disease (Niece -- Crohn disease) Review of Systems ([facility]) Constitutional: see HPI EENTM: see HPI Respiratory: see HPI Cardiovascular: see HPI Gastrointestinal: see HPI Genitourinary: see HPI : No Musculoskeletal: see HPI Skin: see HPI Psychiatric/Neurological: See HPI Reviewed Test Results Reviewed Test Results Lab Laboratory Tests 09/12/22 07:20: White Blood Count 16.3H, Red Blood Count 4.94, Hemoglobin 14.7, Hematocrit 43, Mean Corpuscular Volume 87, Mean Corpuscular Hemoglobin 30, Mean Corpuscular Hemoglobin Concent 34, Red Cell Distribution Width 12.9, Platelet Count 327, Mean Platelet Volume 10.8, Immature Granulocyte % (Auto) 0, Neutrophils (%) (Auto) 72, Lymphocytes (%) (Auto) 18, Monocytes (%) (Auto) 7, Eosinophils (%) (Auto) 2, Basophils (%) (Auto) 1, Neutrophils # (Auto) 11.8H, Lymphocytes # (Auto) 2.9, Monocytes # (Auto) 1.2H, Eosinophils # (Auto) 0.3, Basophils # (Auto) 0.1, Immature Granulocyte # (Auto) 0.1, Neutrophils % (Manual) 73, Lymphocytes % (Manual) 22, Monocytes % (Manual) 4, Eosinophils % (Manual) 1, Blood Morphology Comment NORMAL, Sodium Level 134L, Potassium Level 4.0, Chloride Level 101, Carbon Dioxide Level 23, Anion Gap 10, Blood Urea Nitrogen 12, Creatinine 0.80, Estimat Glomerular Filtration Rate 93, BUN/Creatinine Ratio 15, Glucose Level 134H, Calcium Level 9.4, Corrected Calcium 9.3, Total Bilirubin 0.8, Aspartate Amino Transf (AST/SGOT) 15, Alanine Aminotransferase (ALT/SGPT) 20, Alkaline Phosphatase 124, Total Protein 7.6, Albumin 4.1 09/12/22 07:28: Urine Color YELLOW, Urine Clarity CLEAR, Urine pH 5.5, Urine Specific [place] >=1.030, Urine Protein 1+H, Urine Glucose (UA) NEGATIVE, Urine Ketones NEGATIVE, Urine Nitrite NEGATIVE, Urine Bilirubin NEGATIVE, Urine Urobilinogen 0.2, Urine Leukocyte Esterase NEGATIVE, Urine RBC (Auto) 2+H, Urine RBC 5-10H, Urine WBC NONE, Urine Squamous Epithelial Cells 5-10, Urine Crystals NONE, Urine Bacteria TRACE, Urine Casts NONE, Urine Mucus NEGATIVE, Urine Other CLUE CELLS PRESENT, Urine Culture Indicated NO, Urine Test NEGATIVE Radiology [facility], [place] NAME: LILIA MCGINNIS [facility] REC#: [id number] PT STATUS: REG ER : 1975 PHYSICIAN: ALEKSANDRA BLANTON MD ADMIT DATE: 09/12/22/ER Draft Date of Exam:09/12/22 CT ABDOMEN/PELVIS WO PROCEDURE: CT abdomen and pelvis without contrast. TECHNIQUE: Multiple contiguous axial images were obtained through the abdomen and pelvis without the use of intravenous contrast. Auto Exposure Controls were utilized during the CT exam to meet ALARA standards for radiation dose reduction. INDICATION: Left lower quadrant abdominal pain. Nausea. COMPARISON: None FINDINGS: Included portions of lung bases are clear. CT ABDOMEN: There is colonic diverticulosis. Note is also made of focal moderate pericolonic stranding which appears to be epicentered around a diverticulum of the distal descending colon (image 119, series 2). There is small amount of free fluid within the adjacent pericolic gutter. There is no loculated fluid collection, pneumatosis, pneumoperitoneum, nor portal venous gas. Proximal large and small bowel loops are nondistended. Normal appendix is identified. The kidneys, adrenal glands, spleen, pancreas, and liver have an unremarkable noncontrast CT appearance. No abnormal mesenteric or retroperitoneal adenopathy is seen. Mild scattered calcified aortic atherosclerosis is noted. Osseous structures show no acute abnormalities. CT PELVIS: Urinary bladder is unopacified. No calculi are seen within urinary bladder. Again, there is small amount of free fluid within the pelvis. There is no loculated fluid collection or free air. No abnormal lymph nodes are seen. Osseous structures show no acute abnormalities. IMPRESSION: 1. Colonic diverticulosis with CT findings most suggestive of acute diverticulitis of the distal descending colon. Please note, colonic malignancy may present in a similar manner. Correlation with colonoscopy is advised when clinically appropriate. 2. Small amount of free fluid likely related to the above. No loculated fluid collection, pneumatosis, pneumoperitoneum, nor portal venous gas. Dictated on workstation # [id number] Dict: 09/12/22 0827 Trans: 09/12/22 0837 [id number] Interpreted by: GRANT ESPARZA MD Electronically signed by: Physical Exam-([facility]) Physical Exam Vital Signs VS - Last 72 Hours, by Label 09/12/22 09/12/22 09/12/22 09/12/22 07:22 09:37 10:11 10:34 Temp 36.7 36.4 Pulse 108 80 79 Resp 18 16 18 B/P (MAP) 170/113 (132) 147/93 139/83 (101) Pulse Ox 98 95 95 94 O2 Delivery Room Air Room Air 09/12/22 12:32 Temp 36.5 Pulse 79 Resp 18 B/P (MAP) 142/89 (106) Pulse Ox 94 O2 Delivery Room Air Capillary Refill : Less Than 3 Seconds General Appearance: moderate distress Eyes: Bilateral Eye Normal Inspection, Bilateral Eye PERRL, Bilateral Eye EOMI (Left beating nystagmus when looking right) Respiratory: chest non-tender, lungs clear, normal breath sounds, no respiratory distress, no accessory muscle use Cardiovascular: normal peripheral pulses, regular rate, rhythm, no edema, no murmur Gastrointestinal: other (Decreased bowel sounds. LLQ tenderness to light palpation. ) Extremities: normal range of motion, normal inspection, no pedal edema, normal capillary refill Neurologic/Psychiatric: no motor/sensory deficits, alert, normal mood/affect, oriented x 3 Skin: normal color, warm/dry Assessment/Plan Assessment/Plan Admission Dx Acute Diverticulitis Admission Status: Inpatient Order (span 2 midnights) Reason for Inpatient Admission: Acute diverticulitis (1) Acute diverticulitis Status: Acute Assessment & Plan: Continue IV ciprofloxavin and IVF. Make patient NPO. IV morphine for pain relief. Encouraged patient to schedule colonoscopy upon discharge to check for malignancy or IBD. 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 I reviewed and verified all information documented by the medical student and made modifications to such information, when appropriate. I personally performed the physical exam and medical decision making. I did not confirm the nystagmus documented by the medical student, and her diet is clear liquid rather than NPO, otherwise agree with documentation. Avelino Foster, Sep 12, 2022,14:38 BETO HOLM Sep 12, 2022 13:09 AVELINO FOSTER MD Sep 12, 2022 14:39
[2022-09-12] MEDS: metroNIDAZOLE 500MG/100ML IVPB 100 ML IV SCH ×2 (13:37→21:06)
[2022-09-12] MEDS ORDERED: LISI1TAB44 PO (15:36)
[2022-09-12] MEDS: morphine INJ 4 MG/ML 1 ML (VIAL/SYRINGE) IVP PRN ×3 (15:37→21:53)
[2022-09-12 15:52] VITALS: BP 152/94
[2022-09-12 17:23] VITALS: BP 138/81
[2022-09-12] MEDS: ACETAMINOPHEN 500 MG TAB (TYLENOL) PO PRN (17:51)
[2022-09-12] MEDS: IBUPROFEN TABLET 200 MG TAB PO PRN (17:51)
[2022-09-12 19:56] VITALS: BP 123/81
[2022-09-12] MEDS ORDERED: ONDANSETRON 4 MG/2 ML (SDV) Z0FRAN ONE (21:50)
[2022-09-12] MEDS: ONDANSETRON 4 MG/2 ML (SDV) Z0FRAN IV PRN (21:53)
[2022-09-12 23:43] VITALS: BP 148/77
[2022-09-13] MEDS: morphine INJ 4 MG/ML 1 ML (VIAL/SYRINGE) IVP PRN ×5 (00:41→23:57)
[2022-09-13] MEDS: IBUPROFEN TABLET 200 MG TAB PO PRN ×2 (02:13→21:40)
[2022-09-13] MEDS: ACETAMINOPHEN 500 MG TAB (TYLENOL) PO PRN ×3 (02:13→21:40)
[2022-09-13 03:51] VITALS: BP 128/66
[2022-09-13] MEDS: NS IV 1000 ML 1,000 ML IV SCH ×3 (04:05→16:51)
[2022-09-13 05:46] LABS: BASOPHILS # (AUTO) 0.1 10^3/uL (0.0-0.1); BASOPHILS % (AUTO) 1 % (0-10); EOSINOPHILS # (AUTO) 0.3 10^3/uL (0.0-0.3); EOSINOPHILS % (AUTO) 2 % (0-10); HEMATOCRIT 36 % (35-52); LYMPHOCYTES % (AUTO) 16 % (12-44); MEAN CORPUSCULAR HEMOGLOBIN 30 pg (25-34); MEAN CORPUSCULAR HGB CONC 34 g/dL (32-36); MEAN CORPUSCULAR VOLUME 90 fL (80-99); MEAN PLATELET VOLUME 10.9 fL (9.0-12.2); MONOCYTES # (AUTO) 0.8 10^3/uL (0.0-1.0); MONOCYTES % (AUTO) 6 % (0-12); NEUTROPHILS # (AUTO) 9.1 10^3/uL (1.8-7.8); NEUTROPHILS % (AUTO) 74 % (42-75); PLATELET COUNT 283 10^3/uL (130-400); WHITE BLOOD COUNT 12.3 10^3/uL (4.3-11.0)
[2022-09-13 06:17] LABS: ALBUMIN 3.6 GM/DL (3.2-4.5)
[2022-09-13 06:18] LABS: POTASSIUM 3.7 MMOL/L (3.6-5.0)
[2022-09-13 06:19] LABS: CALCIUM 8.3 MG/DL (8.5-10.1)
[2022-09-13 06:20] LABS: TOTAL PROTEIN 6.5 GM/DL (6.4-8.2)
[2022-09-13 06:22] LABS: BILIRUBIN,TOTAL 0.5 MG/DL (0.1-1.0)
[2022-09-13 06:23] LABS: CREATININE SERUM 0.69 MG/DL (0.60-1.30)
[2022-09-13] MEDS: metroNIDAZOLE 500MG/100ML IVPB 100 ML IV SCH ×3 (06:30→21:40)
[2022-09-13 07:16] VITALS: BP 140/84
[2022-09-13] MEDS: ONDANSETRON 4 MG/2 ML (SDV) Z0FRAN IV PRN ×3 (07:55→23:57)
--- NOTE | 2022-09-13 08:25 | Progress Note - Surgery ---
STELLA RAMOS 09/13/22 0825: Subjective Date Seen by a Provider: Sep 13, 2022 Time Seen by a Provider: 07:30 Subjective/Events-last exam Pt resting comfortably. States LLQ pain at 7/10. She has tolerated clear diet. She denies fever, chills, sweats, N/V, shortness of breath and chest pain. Review of Systems General: No Chills, No Night Sweats HEENT: No Visual Changes, No Sore Throat Pulmonary: No Dyspnea, No Cough Cardiovascular: No: Chest Pain Gastrointestinal: Abdominal Pain (LLQ); No: Nausea, Vomiting, Melena, Hematochezia Genitourinary: No Dysuria, No Frequency Musculoskeletal: No: leg pain Neurological: No: Weakness, Numbness Objective Exam Vital Signs Date Time Temp Pulse Resp B/P (MAP) Pulse Ox O2 Delivery O2 Flow Rate FiO2 09/13/22 07:16 36.0 69 20 140/84 (102) 95 Room Air 09/13/22 03:51 36.2 70 16 128/66 (86) 95 Room Air 09/12/22 23:43 36.0 75 16 148/77 (100) 96 Room Air 09/12/22 19:56 36.4 80 18 123/81 (95) 94 Room Air 09/12/22 19:30 Room Air 09/12/22 17:23 138/81 (100) 09/12/22 15:52 36.4 81 18 152/94 (113) 95 Room Air 09/12/22 12:32 36.5 79 18 142/89 (106) 94 Room Air 09/12/22 10:34 36.4 79 18 139/83 (101) 94 Room Air 09/12/22 10:11 95 Room Air 09/12/22 09:37 80 16 147/93 95 I & O 09/13/22 07:00 Intake Total 3145 ml Output Total 1300 ml Balance 1845 ml Capillary Refill : Less Than 3 Seconds General Appearance: No Apparent Distress, WD/WN HEENT: PERRL/EOMI, Moist Mucous Membranes Neck: Non Tender, Supple Respiratory: Chest Non Tender, No Accessory Muscle Use, No Respiratory Distress Cardiovascular: Regular Rate, Rhythm, No JVD, Normal Peripheral Pulses Peripheral Pulses: 2+ Dorsalis Pedis (R), 2+ Left Dors-Pedis (L), 2+ Radial Pulses (R), 2+ Radial Pulses (L) Gastrointestinal: soft; No guarding, No rebound; tenderness (LLQ) Extremity: Non Tender, No Calf Tenderness, No Pedal Edema Neurologic/Psychiatric: Alert, Oriented x3, Normal Mood/Affect Skin: Normal Color, Warm/Dry Lymphatic: No Adenopathy Results Lab Laboratory Tests 09/13/22 05:39: White Blood Count 12.3H, Red Blood Count 3.95, Hemoglobin 12.0, Hematocrit 36, Mean Corpuscular Volume 90, Mean Corpuscular Hemoglobin 30, Mean Corpuscular Hemoglobin Concent 34, Red Cell Distribution Width 13.1, Platelet Count 283, Mean Platelet Volume 10.9, Immature Granulocyte % (Auto) 0, Neutrophils (%) (Auto) 74, Lymphocytes (%) (Auto) 16, Monocytes (%) (Auto) 6, Eosinophils (%) (Auto) 2, Basophils (%) (Auto) 1, Neutrophils # (Auto) 9.1H, Lymphocytes # (Auto) 2.0, Monocytes # (Auto) 0.8, Eosinophils # (Auto) 0.3, Basophils # (Auto) 0.1, Immature Granulocyte # (Auto) 0.1, Sodium Level 135, Potassium Level 3.7, Chloride Level 105, Carbon Dioxide Level 20L, Anion Gap 10, Blood Urea Nitrogen 9, Creatinine 0.69, Estimat Glomerular Filtration Rate 110, BUN/Creatinine Ratio 13, Glucose Level 126H, Calcium Level 8.3L, Corrected Calcium 8.6, Total Bilirubin 0.5, Aspartate Amino Transf (AST/SGOT) 15, Alanine Aminotransferase (ALT/SGPT) 17, Alkaline Phosphatase 99, Total Protein 6.5, Albumin 3.6 Assessment/Plan Assessment/Plan Assessment/Plan Acute Diverticulitis - nonperforated LLQ pain Nausea HTN Hx of brain aneurysms Smoker IVF Abx - Ciprofloxacin and metronidazole Antiemetics Will need colonoscopy about 6-8 weeks after symptoms resolve Was started on clears, tolerating well. Conservative measures at this time. Will advance diet once pain/sx under control. RENEA FULLER DO 09/13/22 7092: Subjective Subjective/Events-last exam Pain slightly better today. She is taking some clears. Wbc down. No blood in stools Denies n/v fever sweats chills shortness of breath or chest pain. Objective Exam General Appearance: No Apparent Distress, WD/WN HEENT: PERRL/EOMI, Normal ENT Inspection Neck: Non Tender, Supple Respiratory: Chest Non Tender, No Accessory Muscle Use, No Respiratory Distress Cardiovascular: Regular Rate, Rhythm, No JVD Gastrointestinal: soft, tenderness (LLQ) Extremity: Non Tender, No Calf Tenderness Neurologic/Psychiatric: Alert, Oriented x3, Normal Mood/Affect Skin: Normal Color, Warm/Dry Lymphatic: No Adenopathy Assessment/Plan Assessment/Plan Assessment/Plan Acute Diverticulitis - nonperforated LLQ pain Nausea HTN Hx of brain aneurysms Smoker IVF Abx - Ciprofloxacin and metronidazole Antiemetics Will need colonoscopy about 6-8 weeks after symptoms resolve Was started on clears, tolerating well. Conservative measures at this time. Will advance diet once pain/sx under control. Supervisory-Addendum Brief Verification & Attestation Participated in pt care: history, MDM, physical Personally performed: exam, history, MDM, supervision of care Care discussed with: Medical Student Procedures: n/a Results interpretation: Verified all documentation Verification and Attestation of Medical Student E/M Service A medical student performed and documented this service in my presence. I reviewed and verified all information documented by the medical student and made modifications to such information, when appropriate. I personally performed the physical exam and medical decision making. Renea Fuller, Sep 13, 2022,13:35 STELLA RAMOS Sep 13, 2022 08:25 RENEA FULLER DO Sep 13, 2022 13:35
[2022-09-13] MEDS: CIPROFLOXACIN IV 400MG/200ML 200 ML IV SCH ×2 (10:44→22:28)
[2022-09-13] MEDS: ENOXAPARIN 40 MG/0.4 ML (LOVENOX) SYR SC SCH (10:44)
[2022-09-13 11:10] VITALS: BP 129/76
[2022-09-13] MEDS: PROCHLORPERAZINE 10 MG/2ML INJ (COMPAZINE) IV PRN (11:49)
--- NOTE | 2022-09-13 11:50 | Progress Note - Hospitalist ---
Subjective HPI/CC On Admission Date Seen by Provider: Sep 13, 2022 Time Seen by Provider: 11:00 Subjective/Events-last exam Patient reports abdominal pain about the same. She does report nausea but this did not occur until she had received morphine. She has had no vomiting has had no fever or rigors. She reports that she is starting to feel little hungry and is tolerating clear liquids. Objective Exam Vital Signs Vital Signs Date Time Temp Pulse Resp B/P (MAP) Pulse Ox O2 Delivery O2 Flow Rate FiO2 09/13/22 11:10 36.0 58 18 129/76 (93) 95 Room Air Capillary Refill : Less Than 3 Seconds General Appearance: No Apparent Distress Respiratory: Chest Non Tender, Lungs Clear, Normal Breath Sounds, No Accessory Muscle Use, No Respiratory Distress Cardiovascular: Regular Rate, Rhythm, No Edema, No Gallop, No JVD, No Murmur, Normal Peripheral Pulses Gastrointestinal: Other (Left mid and lower quadrant abdominal pain to palpation abdomen is soft patient is obese there does not appear to be significant distention. Bowel sounds are positive no bruits are noted. There is no rebound there is guarding.) Results/Procedures Lab Laboratory Tests 09/13/22 05:39 Patient resulted labs reviewed. Assessment/Plan Assessment and Plan Assess & Plan/Chief Complaint 1. Acute diverticulitis patient afebrile white count diminishing indicative initial response to antibiotics. Discussed narcotics impact on nausea the likely cause advised combination Tylenol and ibuprofen continuing clear liquids today and deferring to surgery in regards to advance. LIZZ HARDING MD Sep 13, 2022 11:50
[2022-09-13 15:44] VITALS: BP 134/71
[2022-09-13 20:14] VITALS: BP 196/83
[2022-09-14] VITALS (8 sets, daily range): BP systolic 158–187; BP diastolic 74–103
[2022-09-14] MEDS: NS IV 1000 ML 1,000 ML IV SCH ×2 (02:25→09:40)
[2022-09-14] MEDS: metroNIDAZOLE 500MG/100ML IVPB 100 ML IV SCH ×3 (06:04→21:02)
[2022-09-14] MEDS: ACETAMINOPHEN 500 MG TAB (TYLENOL) PO PRN ×2 (08:55→19:33)
[2022-09-14] MEDS: CIPROFLOXACIN IV 400MG/200ML 200 ML IV SCH ×2 (09:34→21:02)
[2022-09-14] MEDS: ENOXAPARIN 40 MG/0.4 ML (LOVENOX) SYR SC SCH (09:35)
[2022-09-14] MEDS: HydroCHLOROthiazide CAP/TABLET 12.5 MG TAB PO SCH (10:40)
[2022-09-14] MEDS: lisINopril 10 MG (PRINIVIL) TABLET PO SCH (10:41)
--- NOTE | 2022-09-14 11:03 | Progress Note - Hospitalist ---
Subjective HPI/CC On Admission Date Seen by Provider: Sep 14, 2022 Time Seen by Provider: 10:45 Subjective/Events-last exam Patient reports decreased abdominal pain. Is passing gas no stool output. Tolerating liquids without any significant nausea. No chills or fever reported. Objective Exam Vital Signs Vital Signs Date Time Temp Pulse Resp B/P (MAP) Pulse Ox O2 Delivery O2 Flow Rate FiO2 09/14/22 07:15 36.4 90 18 164/74 (104) 96 Room Air Capillary Refill : Less Than 3 Seconds General Appearance: No Apparent Distress Respiratory: Chest Non Tender, Lungs Clear, Normal Breath Sounds, No Accessory Muscle Use, No Respiratory Distress Cardiovascular: Regular Rate, Rhythm, No Edema, No Gallop, No JVD, No Murmur, Normal Peripheral Pulses Gastrointestinal: Other (Abdomen soft mild distention decreased left-sided abdominal pain to palpation no masslike effect.) Results/Procedures Lab Patient resulted labs reviewed. Assessment/Plan Assessment and Plan Assess & Plan/Chief Complaint 1. Acute diverticulitis Responding to antibiotics will continue. 2. Slight increase in edema and increasing blood pressure patient tolerating liquids will DC IV fluids and resume lisinopril HCT 10/12.5 the patient takes on a regular basis at home For hypertension. LIZZ HARDING MD Sep 14, 2022 11:03
--- NOTE | 2022-09-14 11:28 | Progress Note - Surgery ---
STELLA RAMOS 09/14/22 1128: Subjective Date Seen by a Provider: Sep 14, 2022 Time Seen by a Provider: 10:00 Subjective/Events-last exam Pt resting comfortably. Reports pain is better, but still present in LLQ. Tolerating clear diet. She is passing flatus. Denies fever, chills, vomiting, diarrhea, chest pain, shortness of breath. Review of Systems General: No Chills, No Night Sweats HEENT: No Visual Changes, No Dysphasia Pulmonary: No Dyspnea, No Cough Cardiovascular: No: Chest Pain Gastrointestinal: Abdominal Pain; No: Nausea, Vomiting, Melena Genitourinary: No Dysuria, No Frequency Musculoskeletal: No: leg pain Neurological: No: Weakness, Numbness Objective Exam Vital Signs Date Time Temp Pulse Resp B/P (MAP) Pulse Ox O2 Delivery O2 Flow Rate FiO2 09/14/22 07:15 36.4 90 18 164/74 (104) 96 Room Air 09/14/22 03:27 36.0 64 16 170/90 (116) 96 Room Air 09/14/22 00:55 36.8 79 18 158/85 (109) 97 Room Air 09/13/22 20:14 36.6 74 16 196/83 (120) 96 Room Air 09/13/22 19:35 Room Air 09/13/22 15:44 36.6 63 16 134/71 (92) 96 Room Air I & O 09/14/22 07:00 Intake Total 1570 ml Output Total 2000 ml Balance -430 ml Capillary Refill : Less Than 3 Seconds General Appearance: No Apparent Distress, Chronically ill HEENT: PERRL/EOMI, Normal ENT Inspection Neck: Non Tender, Supple Respiratory: Chest Non Tender, No Accessory Muscle Use, No Respiratory Distress Cardiovascular: Regular Rate, Rhythm, No JVD, Normal Peripheral Pulses Peripheral Pulses: 2+ Dorsalis Pedis (R), 2+ Left Dors-Pedis (L), 2+ Radial Pulses (R), 2+ Radial Pulses (L) Gastrointestinal: soft; No rebound; tenderness (LLQ tendernes) Extremity: Non Tender, No Calf Tenderness, No Pedal Edema Neurologic/Psychiatric: Alert, Oriented x3, Normal Mood/Affect Skin: Normal Color, Warm/Dry Lymphatic: No Adenopathy Assessment/Plan Assessment/Plan Assessment/Plan Acute Diverticulitis - nonperforated LLQ pain Nausea HTN Hx of brain aneurysms Smoker IVF Abx - Ciprofloxacin and metronidazole Antiemetics Will need colonoscopy about 6-8 weeks after symptoms resolve Continue clear diet Conservative measures at this time. Will advance diet once pain/sx under control. RENEA FULLER DO 09/14/22 1142: Subjective Subjective/Events-last exam Laying down. Feeling better. Still pain in llq, but improving. Passing flatus. Wanting food. Denies n/v fever sweats chills shortness of breath or chest pain. Objective Exam General Appearance: No Apparent Distress, WD/WN, Obese HEENT: PERRL/EOMI, Normal ENT Inspection Neck: Non Tender, Supple Respiratory: Chest Non Tender, No Accessory Muscle Use, No Respiratory Distress Cardiovascular: Regular Rate, Rhythm, No JVD Gastrointestinal: soft; No guarding, No rebound; tenderness (LLQ tendernes) Extremity: Non Tender, No Calf Tenderness Neurologic/Psychiatric: Alert, Oriented x3 Skin: Normal Color, Warm/Dry Lymphatic: No Adenopathy Assessment/Plan Assessment/Plan Assessment/Plan Acute Diverticulitis - nonperforated LLQ pain Nausea HTN Hx of brain aneurysms Smoker IVF Abx - Ciprofloxacin and metronidazole Antiemetics Will need colonoscopy about 6-8 weeks after symptoms resolve Continue clear diet Labs in am Conservative measures at this time. Will advance diet once pain/sx under control likely tomorrow. Supervisory-Addendum Brief Verification & Attestation Participated in pt care: history, MDM, physical Personally performed: exam, history, MDM, supervision of care Care discussed with: Medical Student Procedures: n/a Results interpretation: Verified all documentation Verification and Attestation of Medical Student E/M Service A medical student performed and documented this service in my presence. I reviewed and verified all information documented by the medical student and made modifications to such information, when appropriate. I personally performed the physical exam and medical decision making. Renea Fuller, Sep 14, 2022,11:42 STELLA RAMOS Sep 14, 2022 11:28 RENEA FULLER DO Sep 14, 2022 11:42
[2022-09-14] MEDS: IBUPROFEN TABLET 200 MG TAB PO PRN (12:47)
[2022-09-14] MEDS ORDERED: diphenhydrAMINE 25 MG TAB (BENADRYL) PO ONE (21:32)
[2022-09-14] MEDS: diphenhydrAMINE 25 MG TAB (BENADRYL) PO PRN (21:35)
[2022-09-15 03:18] VITALS: BP 190/93
[2022-09-15] MEDS: diphenhydrAMINE 25 MG TAB (BENADRYL) PO PRN (03:36)
[2022-09-15] MEDS: PROCHLORPERAZINE 10 MG/2ML INJ (COMPAZINE) IV PRN (03:36)
[2022-09-15 03:40] VITALS: BP 201/101
[2022-09-15] MEDS: metroNIDAZOLE 500MG/100ML IVPB 100 ML IV SCH (05:13)
[2022-09-15 07:05] LABS: HEMATOCRIT 36 % (35-52); HEMOGLOBIN 12.2 g/dL (11.5-16.0); MEAN CORPUSCULAR HEMOGLOBIN 29 pg (25-34); MEAN CORPUSCULAR HGB CONC 34 g/dL (32-36); MEAN CORPUSCULAR VOLUME 87 fL (80-99); MEAN PLATELET VOLUME 11.4 fL (9.0-12.2); PLATELET COUNT 308 10^3/uL (130-400); WHITE BLOOD COUNT 9.4 10^3/uL (4.3-11.0)
[2022-09-15 07:25] LABS: ALBUMIN 3.8 GM/DL (3.2-4.5); BILIRUBIN,DIRECT 0.3 MG/DL (0.0-0.3); BILIRUBIN,INDIRECT 0.6 MG/DL; BILIRUBIN,TOTAL 0.9 MG/DL (0.1-1.0); CALCIUM 9.1 MG/DL (8.5-10.1); CREATININE SERUM 0.74 MG/DL (0.60-1.30); POTASSIUM 2.9 MMOL/L (3.6-5.0); TOTAL PROTEIN 6.7 GM/DL (6.4-8.2)
[2022-09-15] MEDS: HydroCHLOROthiazide CAP/TABLET 12.5 MG TAB PO SCH (07:37)
[2022-09-15] MEDS: lisINopril 10 MG (PRINIVIL) TABLET PO SCH (07:37)
[2022-09-15 07:40] VITALS: BP 173/108
--- NOTE | 2022-09-15 07:55 | Progress Note - Surgery ---
STELLA RAMOS 09/15/22 0755: Subjective Date Seen by a Provider: Sep 15, 2022 Time Seen by a Provider: 07:37 Subjective/Events-last exam Pt resting comfortably. States she has no abdominal pain this morning. She reports a 3/10 headache, with noted blood pressure of 201/101. Lisinopril and HCTZ were given. She has not had a bowel movement but is passing flatus. Tolerating liquid diet. Denies fever, chills, sweats, N/V, chest pain, or shortness of breath. Per nurse pt seems to be having a mild allergic reaction/itching at site from the IV ciprofloxacin. Review of Systems General: No Chills, No Night Sweats HEENT: Head Aches; No Visual Changes Pulmonary: No Dyspnea, No Cough Cardiovascular: No: Chest Pain, Orthopnea Gastrointestinal: No: Nausea, Vomiting, Abdominal Pain, Melena Genitourinary: No Dysuria, No Frequency Musculoskeletal: No: leg pain Neurological: No: Weakness, Numbness Objective Exam Vital Signs Date Time Temp Pulse Resp B/P (MAP) Pulse Ox O2 Delivery O2 Flow Rate FiO2 09/15/22 03:40 36.4 75 18 201/101 (134) 97 Room Air 09/15/22 03:18 36.4 73 18 190/93 (125) 97 Room Air 09/14/22 23:21 36.6 74 18 174/95 (121) 95 Room Air 09/14/22 20:00 Room Air 09/14/22 19:36 36.1 78 20 187/85 (119) 96 09/14/22 15:22 36.0 75 20 183/80 (114) 97 09/14/22 12:35 167/103 (124) 09/14/22 11:55 36.9 77 18 169/100 (123) 98 Room Air 09/14/22 08:00 98 Room Air I & O 09/15/22 07:00 Intake Total 1400 ml Output Total 2250 ml Balance -850 ml Capillary Refill : Less Than 3 Seconds General Appearance: No Apparent Distress, WD/WN, Obese HEENT: PERRL/EOMI, Normal ENT Inspection Neck: Non Tender, Supple Respiratory: Chest Non Tender, Lungs Clear, Normal Breath Sounds, No Accessory Muscle Use, No Respiratory Distress Cardiovascular: Regular Rate, Rhythm, No JVD, No Murmur Peripheral Pulses: 2+ Dorsalis Pedis (R), 2+ Left Dors-Pedis (L), 2+ Radial Pulses (R), 2+ Radial Pulses (L) Gastrointestinal: normal bowel sounds, non tender, soft, distended (minimal); No guarding, No rebound Extremity: Non Tender, No Calf Tenderness, No Pedal Edema Neurologic/Psychiatric: Alert, Oriented x3, Normal Mood/Affect Skin: Normal Color, Warm/Dry Lymphatic: No Adenopathy Results Lab Laboratory Tests 09/15/22 06:30: White Blood Count 9.4, Red Blood Count 4.15, Hemoglobin 12.2, Hematocrit 36, Mean Corpuscular Volume 87, Mean Corpuscular Hemoglobin 29, Mean Corpuscular Hemoglobin Concent 34, Red Cell Distribution Width 12.5, Platelet Count 308, Mean Platelet Volume 11.4, Sodium Level 137, Potassium Level 2.9L, Chloride Level 102, Carbon Dioxide Level 25, Anion Gap 10, Blood Urea Nitrogen 6L, Creatinine 0.74, Estimat Glomerular Filtration Rate 102, BUN/Creatinine Ratio 8, Glucose Level 140H, Calcium Level 9.1, Total Bilirubin 0.9, Direct Bilirubin 0.3, Indirect Bilirubin 0.6, Aspartate Amino Transf (AST/SGOT) 34, Alanine Aminotransferase (ALT/SGPT) 28, Alkaline Phosphatase 103, Total Protein 6.7, Albumin 3.8 Assessment/Plan Assessment/Plan Assessment/Plan Acute Diverticulitis - nonperforated LLQ pain Nausea HTN Hx of brain aneurysms Smoker IVF Abx - Metronidazole and ciprofloxacin Antiemetics White count significantly improved. She is pain free at this time Advance diet, if tolerates she can be d/c from surgical standpoint Will need colonoscopy in about 6-8 weeks Pt agrees with plan. RENEA FULLER DO 09/15/22 1214: Subjective Subjective/Events-last exam Not longer having abdominal pain. Tolerating liquid diet without any nausea. Hungry wanting food. Denies n/v fever sweats chills shortness of breath or chest pain. Objective Exam General Appearance: No Apparent Distress, WD/WN HEENT: PERRL/EOMI, Normal ENT Inspection Neck: Non Tender, Supple Respiratory: Chest Non Tender, No Accessory Muscle Use, No Respiratory Distress Cardiovascular: Regular Rate, Rhythm, No JVD Gastrointestinal: non tender, soft; No distended (minimal) Extremity: Non Tender, No Calf Tenderness Neurologic/Psychiatric: Alert, Oriented x3, Normal Mood/Affect Skin: Normal Color, Warm/Dry Lymphatic: No Adenopathy Assessment/Plan Assessment/Plan Assessment/Plan Acute Diverticulitis - nonperforated LLQ pain Nausea HTN Hx of brain aneurysms Smoker Abx - Metronidazole and ciprofloxacin Antiemetics White count significantly improved. She is pain free at this time Advance diet, if tolerates she can be d/c from surgical standpoint Will need colonoscopy in about 6-8 weeks Pt agrees with plan. Supervisory-Addendum Brief Verification & Attestation Participated in pt care: history, MDM, physical Personally performed: exam, history, MDM, supervision of care Care discussed with: Medical Student Procedures: n/a Results interpretation: Verified all documentation Verification and Attestation of Medical Student E/M Service A medical student performed and documented this service in my presence. I reviewed and verified all information documented by the medical student and made modifications to such information, when appropriate. I personally performed the physical exam and medical decision making. Renea Fuller, Sep 15, 2022,12:14 STELLA RAMOS Sep 15, 2022 07:55 RENEA FULLER DO Sep 15, 2022 12:14
[2022-09-15] MEDS ORDERED: HydroCHLOROthiazide CAP/TABLET 12.5 MG TAB PO SCH (09:00)
[2022-09-15] MEDS ORDERED: lisINopril 10 MG (PRINIVIL) TABLET PO SCH (09:00)
--- NOTE | 2022-09-15 10:06 | Discharge Summary ---
Discharge Summary Hospital Course Hospital Course Date of Admission: Sep 12, 2022 at 09:22 Admission Diagnosis : Family Physician/Provider: No,Local Physician Date of Discharge: 09/15/22 Discharge Diagnosis: [ ] Hospital Course: [ ] Labs and Pending Lab Test: Laboratory Tests 09/15/22 06:30: White Blood Count 9.4, Red Blood Count 4.15, Hemoglobin 12.2, Hematocrit 36, Mean Corpuscular Volume 87, Mean Corpuscular Hemoglobin 29, Mean Corpuscular Hemoglobin Concent 34, Red Cell Distribution Width 12.5, Platelet Count 308, Mean Platelet Volume 11.4, Sodium Level 137, Potassium Level 2.9L, Chloride Level 102, Carbon Dioxide Level 25, Anion Gap 10, Blood Urea Nitrogen 6L, Creatinine 0.74, Estimat Glomerular Filtration Rate 102, BUN/Creatinine Ratio 8, Glucose Level 140H, Calcium Level 9.1, Total Bilirubin 0.9, Direct Bilirubin 0.3, Indirect Bilirubin 0.6, Aspartate Amino Transf (AST/SGOT) 34, Alanine Aminotransferase (ALT/SGPT) 28, Alkaline Phosphatase 103, Total Protein 6.7, Albumin 3.8 Home Meds Active Reported Lisinopril-Hctz 10-12.5 mg Tab (Lisinopril/Hydrochlorothiazide) 10 Mg-12.5 Mg Tablet 1 Ea PO DAILY PRN Discharge Physical Examination Vital Signs Vital Signs Date Time Temp Pulse Resp B/P (MAP) Pulse Ox O2 Delivery O2 Flow Rate FiO2 09/15/22 08:00 98 Room Air 09/15/22 07:40 36.4 78 20 173/108 (129) Allergies: Coded Allergies: cephalexin (Verified Allergy, Unknown, 01/20/22) Discharge Summary Date of Admission Sep 12, 2022 at 09:22 Date of Discharge Discharge Date: Sep 15, 2022 MALINI ROGEL DO Sep 15, 2022 10:06
[2022-09-15] MEDS: CIPROFLOXACIN IV 400MG/200ML 200 ML IV SCH (10:20)
[2022-09-15] MEDS: ENOXAPARIN 40 MG/0.4 ML (LOVENOX) SYR SC SCH (10:20)
[2022-09-15] MEDS ORDERED: METR-145 PO (10:40)
[2022-09-15] MEDS ORDERED: CIPR500T5 PO (10:40)
--- NOTE | 2022-09-15 10:40 | Discharge Summary ---
Discharge Summary Hospital Course Was the Problem List Reviewed?: Yes Problems/Dx: (1) Acute diverticulitis Status: Acute Hospital Course Date of Admission: Sep 12, 2022 at 09:22 Admission Diagnosis : Family Physician/Provider: No,Local Physician Date of Discharge: 09/15/22 Discharge Diagnosis: [ ] Hospital Course: Nohemy Rowland is a 47 year old female who was admitted on 09/12/2022 for LLQ pain confirmed to be non-perforative diverticulitis by CT. Surgery was consulted and she was treated conservatively with ciprofloxacin and metronidazole. She maintained a diet of clears, and did not progress to operative management. Of note, she had hypertensive episodes throughout her course, with her highest blood pressure recorded at 201/101. Her BP was treated with lisinopril and hydrochlorothiazide. Her WBC normalized after day 3 as did her abdominal pain. Following her hospital stay and resolution of symptoms it is recommended that she schedule an outpatient colonoscopy in 6-8 weeks. ANNITA CRUZ I Labs and Pending Lab Test: Laboratory Tests 09/15/22 06:30: White Blood Count 9.4, Red Blood Count 4.15, Hemoglobin 12.2, Hematocrit 36, Mean Corpuscular Volume 87, Mean Corpuscular Hemoglobin 29, Mean Corpuscular Hemoglobin Concent 34, Red Cell Distribution Width 12.5, Platelet Count 308, Amena n Platelet Volume 11.4, Sodium Level 137, Potassium Level 2.9L, Chloride Level 102, Carbon Dioxide Level 25, Anion Gap 10, Blood Urea Nitrogen 6L, Creatinine 0.74, Estimat Glomerular Filtration Rate 102, BUN/Creatinine Ratio 8, Glucose Level 140H, Calcium Level 9.1, Total Bilirubin 0.9, Direct Bilirubin 0.3, Indirect Bilirubin 0.6, Aspartate Amino Transf (AST/SGOT) 34, Alanine Aminotransferase (ALT/SGPT) 28, Alkaline Phosphatase 103, Total Protein 6.7, Albumin 3.8 Home Meds Active Metronidazole 500 Mg Tablet 500 Mg PO TID Ciprofloxacin HCl 500 Mg Tablet 500 Mg PO BID Reported Lisinopril-Hctz 10-12.5 mg Tab (Lisinopril/Hydrochlorothiazide) 10 Mg-12.5 Mg Tablet 1 Ea PO DAILY PRN Assessment/Pt Instructions PCP 1 week Discharge Planning: <30 minutes discharge planning Discharge Instructions Discharge Diet: No Restrictions Discharge Physical Examination Vital Signs Vital Signs Date Time Temp Pulse Resp B/P (MAP) Pulse Ox O2 Delivery O2 Flow Rate FiO2 09/15/22 08:00 98 Room Air 09/15/22 07:40 36.4 78 20 173/108 (129) General Appearance: No Apparent Distress, WD/WN, Chronically ill Allergies: Coded Allergies: cephalexin (Verified Allergy, Unknown, 01/20/22) Discharge Summary Date of Admission Sep 12, 2022 at 09:22 Date of Discharge Discharge Date: Sep 15, 2022 MALINI ROGEL DO Sep 15, 2022 10:40
--- NOTE | 2022-09-15 18:50 | Progress Note ---
ANNITA CRUZ I 09/15/22 1850: Progress Note Nohemy Rowland is a 47 year old female who was admitted on 09/12/2022 for LLQ pain confirmed to be non-perforative diverticulitis by CT. Surgery was consulted and she was treated conservatively with ciprofloxacin and metronidazole. She maintained a diet of clears, and did not progress to operative management. Of note, she had hypertensive episodes throughout her course, with her highest blood pressure recorded at 201/101. Her BP was treated with lisinopril and hydrochlorothiazide. Her WBC normalized after day 3 as did her abdominal pain. Following her hospital stay and resolution of symptoms it is recommended that she schedule an outpatient colonoscopy in 6-8 weeks. TARSHA ROGEL DO 09/15/22 5365: Supervisory-Addendum Brief Verification & Attestation Participated in pt care: history, MDM, physical Personally performed: exam, history, MDM, supervision of care Care discussed with: Medical Student Procedures: n/a Results interpretation: Verified all documentation Verification and Attestation of Medical Student E/M Service A medical student performed and documented this service in my presence. I reviewed and verified all information documented by the medical student and made modifications to such information, when appropriate. I personally performed the physical exam and medical decision making. Tarsha Rogel, Sep 15, 2022,21:55 ANNITA CRUZ I Sep 15, 2022 18:50 TARSHA ROGEL DO Sep 15, 2022 21:55
== END 2022-09-15 10:55 | disposition home or self-care (01) | DRG 392 ==
LOC: EDUNIT# 07:09 → ER 07:11 → 4TH 09:22 → EDLOC 09:22
PROVIDERS: ADMIT Family Medicine; ATTEND Internal Medicine
DX: K57.32 Diverticulitis of large intestine without perforation or abscess without bleeding (principal); I10 Essential (primary) hypertension; F17.210 Nicotine dependence, cigarettes, uncomplicated
CPT/HCPCS: 36415; 74176; 80048; 80053; 80076; 81000; 84703; 85007; 85025; 85027; G0378

== ENCOUNTER 2022-10-15 05:35 | Outpatient (CLI) | payer MEDICAID ==
[~2022-10-15] VITALS: Ht 165.1 cm; Wt 104.2 kg
[~2022-10-15 05:35] MED LIST changes: +CIPR500T5 PO; +LISI1TAB44 PO; +METR-145 PO
== END 2022-10-15 15:24 ==
LOC: PREOP 05:35
PROVIDERS: ATTEND Surgery
DX: Z01.818 Encounter for other preprocedural examination (principal)

== ENCOUNTER 2022-10-28 08:45 | Day surgery (SDC) | payer MEDICAID ==
[~2022-10-28] VITALS: Ht 165.1 cm; Wt 104.2 kg
[2022-10-28] MEDS ORDERED: LACTATED RINGERS 1,000 ML IV STA (08:52)
[2022-10-28] MEDS ORDERED: HURRICAINE EXT TUBE (BENZOCAINE) XX PRN (09:00)
[2022-10-28 09:30] VITALS: BP 129/92
--- NOTE | 2022-10-28 10:24 | Progress Note-Pre Operative ---
Pre-Operative Progress Note Date H&P Reviewed: Oct 28, 2022 Time H&P Reviewed: 10:24 History & Physical: H&P Reviewed, Patient Examed, No changes noted Pre-Operative Diagnosis: gerd, hx of diverticulitis RENEA ENGLE DO Oct 28, 2022 10:24
[2022-10-28] MEDS ORDERED: PROPOFOL INJECTION 50 ML IV ONE ×2 (10:25→11:14)
[2022-10-28] MEDS ORDERED: MIDAZOLAM 2 MG/2 ML (VERSED) VIAL ONE (10:26)
[2022-10-28] MEDS ORDERED: ESMOLOL 100 MG/10 ML (BREVIBLOC) VIAL ONE (11:04)
[2022-10-28] MEDS ORDERED: proPOfol 200 MG/20 ML (DIPRIVAN) VIAL IV ONE (11:14)
[2022-10-28 11:15] VITALS: BP 162/80
--- NOTE | 2022-10-28 11:18 | Discharge Inst-Simple/Standard ---
Discharge Inst-Standard Patient Instructions/Follow Up Plan of Care/Instructions/FU: Follow up w/ Alina in 2 weeks High fiber diet Activity as Tolerated: Yes Discharge Diet: Other Diet (High Fiber) RENEA ENGLE DO Oct 28, 2022 11:17
[2022-10-28] MEDS ORDERED: OMEP20CA18 PO (11:20)
--- NOTE | 2022-10-28 11:23 | Progress Note-Post Operative ---
Post-Operative Progess Note Surgeon (s)/Ship Rigger Apprentice (s) Surgeon RENEA ENGLE DO Ship Rigger Apprentice: N/A Pre-Operative Diagnosis gerd, hx of diverticulitis Post-Operative Diagnosis Slight Gastritis Rectal Polyp Diverticulosis Procedure & Operative Findings Date of Procedure 10/28/22 Procedure Performed/Findings EGD w/ biopsies amd Colonoscopy w/ hot biopsy polypectomy x1 Anesthesia Type per CHIEF NURSE EXECUTIVE Estimated Blood Loss Estimated blood loss (mL): None Specimens/Packing Specimens Removed Rectal Polyp; Antral and GEJ RENEA ENGLE DO Oct 28, 2022 11:23
[2022-10-28 11:25] VITALS: BP 198/95
[2022-10-28 11:30] VITALS: BP 200/102
[2022-10-28 12:16] VITALS: BP 200/102
--- NOTE | 2022-10-28 14:58 | Anesthesia-General Post-Op ---
MAC Patient Condition Mental Status/LOC: Same as Preop Cardiovascular: Satisfactory Nausea/Vomiting: Absent Respiratory: Satisfactory Pain: Controlled Complications: Absent Post Op Complications Complications None Follow Up Care/Instructions Patient Instructions None needed. Anesthesiology Discharge Order Discharge Order Patient is doing well, no complaints, stable vital signs, no apparent adverse anesthesia problems. No complications reported per nursing. JESUS BURRIS CRNA Oct 28, 2022 14:58
--- NOTE | 2022-10-28 15:20 | OPERATIVE REPORT ---
DATE OF SERVICE: 10/28/2022 PREOPERATIVE DIAGNOSES: History of diverticulitis and gastroesophageal disease. POSTOPERATIVE DIAGNOSES: Diverticulosis, slight gastritis, rectal polyp. SURGEON: Renea Fuller DO ANESTHESIA: Per BUTT SAWYER. PROCEDURES: EGD with biopsies, colonoscopy with hot biopsy polypectomy x1. ESTIMATED BLOOD LOSS: None. COMPLICATIONS: None. INDICATIONS: The patient is a 47-year-old female who was admitted with diverticulitis. She was treated conservatively. She has never had a colonoscopy also she has GERD symptoms. We discussed doing EGD and colonoscopy. She understood risks and benefits of procedure and wished to proceed. Consent was signed in chart. DESCRIPTION OF PROCEDURE: The patient was taken to endoscopy suite, placed in left lateral recumbent position. Timeout was performed. Scope was inserted in the mouth, down the esophagus, stomach and duodenum without difficulty. No polyps, masses or ulcerations within the duodenum. Scope was retracted back into the stomach, where it was further insufflated. Slight gastritis appearance. Biopsy of the antrum was obtained. Scope was retroflexed noting no other pathology. Scope was returned to its normal position, slowly withdrawn until distal esophagus. Biopsy of GE junction was obtained. No polyps, masses or ulcerations. Scope was slowly retracted back until completely removed. Digital rectal exam was performed. No palpable polyps, masses or ulcerations. Scope was inserted in the rectum, advanced all the way to the cecum. The patient will be repositioned a couple times in order to get to the cecum. Prep was adequate with irrigation and suction. Scope was then slowly retracted back. No polyps, masses or ulcerations in the cecum, ascending, transverse, descending and sigmoid colon. A moderate amount of diverticulosis, primarily in the left colon. Once in the rectum, scope was retroflexed, noting no other pathology. In the rectum, there was small polyp, which hot biopsy polypectomy was performed. Scope was slowly retracted back until completely removed. The patient tolerated the procedure well without complications, taken to recovery room in stable condition. RECOMMENDATIONS: The patient will recommend high fiber diet. Recommend repeat colonoscopy in 5 years. Any issues before that, be seen at that time. He will follow up on biopsy results for esophagogastroduodenoscopy. Job ID: [id number] DocumentID: [id number] Dictated Date: 10/28/2022 11:18:32 Painting And Coating Worker Date: 10/28/2022 15:18:00 Dictated By: RENEA FULLER DO
== END 2022-10-28 12:32 | disposition home or self-care (01) ==
LOC: ENDO 08:45
PROVIDERS: ATTEND Surgery
DX: Z09 Encounter for follow-up examination after completed treatment for conditions other than malignant neoplasm (principal); K62.1 Rectal polyp; K57.30 Diverticulosis of large intestine without perforation or abscess without bleeding; K29.70 Gastritis, unspecified, without bleeding; K21.9 Gastro-esophageal reflux disease without esophagitis; E66.9 Obesity, unspecified; Z87.19 Personal history of other diseases of the digestive system; Z28.310 Unvaccinated for COVID-19; F17.210 Nicotine dependence, cigarettes, uncomplicated; E66.01 Morbid (severe) obesity due to excess calories; Z68.39 Body mass index [BMI] 39.0-39.9, adult
CPT/HCPCS: 84703; 88305